=== PATIENT | female | born 2000 | race Asian ===

== ENCOUNTER 2021-03-08 01:35 | Inpatient (IN) ==
--- NOTE | 2021-03-08 02:49 | Emergency Department Note ---
History of Present Illness General Chief complaint: Cough Stated complaint: HEAVY COUGH,VERY MILD CHEST PAIN,FATIGUE Time Seen by Provider: 03/08/21 01:50 Source: patient Mode of arrival: ambulatory Limitations: no limitations History of Present Illness Provider complaint: cough, fatigue Onset (ago): day(s) 5 Treatments prior to arrival: none This is a 20-year-old female presents emergency department complaining of several days of fatigue and cough. Patient states last she began noticing fatigue and not feeling well. She states over the weekend she felt subjective fevers and chills but when she checked her temperature did she did not actually have a fever. She states then she began developing a cough, nonproductive, at times vigorous leading to chest pain. She denies nasal congestion, rhinorrhea, sore throat, headaches, myalgias. Patient denies any known sick contact. 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 Patient states her platelets typically run around 65. She states she tried an [id number] gummy for cough and cold symptoms without any relief. She states the cough does seem slightly improved since arriving here. No prior history of asthma or tobacco abuse. Patient denies any chance of . She denies any nausea, vomiting, diarrhea, edema, rash or sores. Patient denies any overt shortness of breath despite the cough. Pt seen during a time of high acuity and national emergency pandemic while wearing PPE. Home Medications Medication Instructions Recorded Confirmed Type acetaminophen 325 mg tablet 650 mg PO DIRECTED PRN 03/08/21 03/08/21 History (Tylenol) menthol 5.8 mg lozenges (Cough 0 mg PO DIRECTED PRN 03/08/21 03/08/21 History Drops) Allergies Allergy/AdvReac Type Severity Reaction Status Date / Time No Known Allergies Allergy Verified 03/08/21 02:17 Past Med/Surg History Medical History (Updated 03/08/21 @ 13:12 by Manuel Dale MD) Acute ITP Social History Smoking Status: Never smoker Hx Alcohol Use: Yes Alcohol type: beer, wine and hard liquor Hx Substance Use: No Preferred Language: Welsh Communication Ability: Effective [employer] Technician Required: No Beliefs That Will Affect Care: None Current Living Situation: Other Current Living Situation Comment: Roommates Other Information That Helps Us Care for You: No Feels Safe at Home: Yes Safety Concerns: Feels Safe At This Time Assistive Devices: None Review of Systems A total of 10 systems reviewed and were otherwise negative All systems reviewed & are unremarkable except as noted in HPI & below Physical Exam Vital Signs Vital Signs - 24 hr 03/08/21 01:39 03/08/21 02:30 03/08/21 04:16 Temperature 37.1 C Temperature Source Oral Pulse Rate 128 H Pulse Rate [Finger] 111 H 110 H Respiratory Rate 18 16 18 Respiratory Effort / Characteristics Non-Labored Spontaneous Non-Labored Spontaneous Respiratory Depth Normal Normal Normal Respiratory Pattern Regular Regular Blood Pressure 108/68 Blood Pressure [Left Arm] 103/68 111/69 Blood Pressure Mean 81 Blood Pressure Mean [Left Arm] 79 83 Blood Pressure Position [Left Arm] Sitting Sitting Pulse Oximetry 100 100 100 Oxygen Delivery Method Room Air Room Air Room Air Sepsis Recent Fever Within 48 Hours No Sepsis New/Unexplained Change in Mental Status N/A Sepsis Action Taken by Nursing No Action Required GENERAL: alert, well appearing, well nourished, no distress, non-toxic EYE EXAM: normal conjunctiva, PERRL and EOM's grossly intact OROPHARYNX: no exudate, no erythema, lips, buccal mucosa, and tongue normal and mucous membranes are moist NECK: supple, no nuchal rigidity, no adenopathy, non-tender LUNGS: Clear to auscultation. Normal chest wall mechanics, no w/r/r HEART: no murmurs, S1 normal and S2 normal ABDOMEN: abdomen soft, non-tender, normo-active bowel sounds, no masses, no rebound or guarding. BACK: Back is symmetrical on inspection and there is no deformity, no midline tenderness, no CVA tenderness. SKIN: no rashes and no bruising, no petechiae UPPER EXTREMITIES: upper extremities are grossly normal. FROM, nml pulses b/l. LOWER EXTREMITIES: No pitting edema. FROM, nml pulses b/l. NEURO EXAM: Normal sensorium, cranial nerves II-XII grossly intact, normal speech, no gross weakness of arms, no gross weakness of legs. Gross sensation intact. Course Course 0335: I updated pt on results and concerns and we discussed inpatient treatment and blood transfusion. I did answer a few questions bedside and patient asked then if she can make a few phone calls before deciding. Patient states she does have a history of thyroid dysfunction is not currently taking any medications. 0400: Hospitalist update as a precaution, will check back with patient to see if she was in agreement. 0425: Patient now in agreement with plan for blood transfusion, blood consent form signed at bedside. In agreement with plan for additional inpatient management also. [facility] hospitalist notified. Administered Medications Famotidine (Famotidine 20 Mg Tab) 20 mg PO BID ALINA Stop: 04/07/21 08:59 Last Admin: 03/08/21 20:01 Dose: 20 mg Documented by: [id number] Admin: 03/08/21 09:53 Dose: 20 mg Documented by: [id number] Guaifenesin (Guaifenesin 600 Mg Tabcr) 600 mg PO Q12H ALINA Stop: 04/07/21 08:59 Last Admin: 03/08/21 20:01 Dose: 600 mg Documented by: [id number] Admin: 03/08/21 09:53 Dose: 600 mg Documented by: [id number] Ceftriaxone Sodium 1,000 mg/ (Dextrose) 50 mls @ 100 mls/hr IV Q24H ALINA; Protocol Stop: 03/16/21 05:59 Last Infusion: 03/09/21 06:47 Dose: 0 mls/hr Documented by: [id number] Admin: 03/09/21 06:14 Dose: 100 mls/hr Documented by: [id number] Azithromycin 500 mg/ Dextrose 255 mls @ 127.5 mls/hr IV Q24H ALINA Stop: 03/16/21 05:59 Last Admin: 03/09/21 06:14 Dose: 127.5 mls/hr Documented by: [id number] Levothyroxine Sodium (Levothyroxine Sodium 75 Mcg Tablet) 75 mcg PO DAILYBB ALINA Stop: 04/08/21 06:29 Last Admin: 03/09/21 06:26 Dose: 75 mcg Documented by: [id number] Menthol (Cough Drop (Sugar Free) Rochelle 24 Rochelle/1 Box) 1 rochelle BUCCAL Q1H PRN PRN Reason: Sore Throat Stop: 04/07/21 08:21 Last Admin: 03/08/21 09:08 Dose: 1 rochelle Documented by: [id number] Prednisone (Prednisone 50 Mg Tab) 50 mg PO DAILY ALINA Stop: 04/07/21 09:44 Last Admin: 03/08/21 11:04 Dose: 50 mg Documented by: [id number] Discontinued Medications Dexamethasone Sodium Phosphate (DexamethasonePf 10 Mg/Ml Vial) 6 mg IV NOW STA Stop: 03/08/21 04:57 Last Admin: 03/08/21 05:12 Dose: 6 mg Documented by: [id number] Ceftriaxone Sodium (Rocephin) 1,000 mg in 50 mls @ 100 mls/hr IV NOW STA Stop: 03/08/21 04:23 Last Infusion: 03/08/21 04:46 Dose: 0 mls/hr Documented by: [id number] Admin: 03/08/21 04:16 Dose: 100 mls/hr Documented by: [id number] Azithromycin 500 mg/ Dextrose 255 mls @ 127.5 mls/hr IV NOW STA Stop: 03/08/21 07:14 Last Infusion: 03/08/21 07:50 Dose: 0 mls/hr Documented by: [id number] Admin: 03/08/21 05:51 Dose: 127.5 mls/hr Documented by: [id number] Ioversol (Optiray 320 125ml) 120 ml IV ONCE ONE Stop: 03/08/21 06:35 Last Admin: 03/08/21 06:35 Dose: 120 ml Documented by: [id number] Potassium Chloride (Potassium Chloride Crtab 20 Meq Tabcr) 40 meq PO NOW STA Stop: 03/08/21 05:38 Last Admin: 03/08/21 06:21 Dose: 40 meq Documented by: [id number] Vitamin D (Cholecalciferol 1,000 Units 25 Mcg Tab) [facility] [place]: 04/07/21 08:59 Last Admin: 03/08/21 09:58 Dose: Not Given Documented by: [id number] Zinc Sulfate (Zinc Sulfate 220 Mg Capsule) [facility] Stop: 04/07/21 08:59 Last Admin: 03/08/21 09:58 Dose: Not Given Documented by: [id number] Critical Care Time Critical Care Time: Yes Total Critical Care Time: 42 Critical care of 42 min performed to assess and manage high likelihood of life- threatening anemia, involving labs and imaging performed with assessment to evaluate fatigue and cough diagnosis with frequent reassessment. This time includes bedside time, treatment discussions with patient/family/consultants, documentation time and excludes procedure time. Medical Decision Making Differential Diagnosis Differential diagnoses includes but is not limited to pneumonia, bronchitis, COPD/Asthma exacerbation, pneumothorax, pulmonary embolism, congestive heart failure, acute coronary syndrome Medical Records Attestation: I reviewed the patient's medical records. Home Medications Current Medication List: was personally reviewed by me Laboratory Data Attestation: I reviewed the patient's lab results. Result diagrams: 03/08/21 04:07 03/08/21 02:31 Lab Results 03/08/21 03/08/21 03/08/21 Range/Units 02:31 02:31 02:31 WBC 5.61 (4.8-10.8) K/uL RBC 2.84 L (4.2-5.4) M/uL Hgb 3.6 L* (12.0-16.0) g/dL Hct 15.8 L* (37-47) % MCV 55.6 L (80-100) fL MCH 12.7 L (25-34) pg MCHC 22.8 L (32-36) g/dL Plt Count 24 L* (130-400) K/uL Immature Gran % (Auto) 1.2 % Neut % (Auto) 62.1 % Lymph % (Auto) 27.8 % [place] % (Auto) 8.2 % Eos % (Auto) 0.2 % Baso % (Auto) 0.5 % Reticulocyte % (Auto) (0.5-2.0) % Neut # (Auto) 3.48 (1.4-6.5) K/uL Lymph # (Auto) 1.56 (1.2-3.4) K/uL [place] # (Auto) 0.46 (0.11-0.59) K/uL Eos # (Auto) 0.01 (0-0.5) K/uL Baso # (Auto) 0.03 (0-0.2) K/uL Reticulocyte # (0.02-0.10) 10^6/uL Immature Gran # (Auto) 0.07 H (0.00-0.02) K/uL Absolute Nucleated RBC 0.22 H (0-0) K/uL Nucleated RBC % (auto) 3.8 % Platelet Estimate SIGNIFIC DECREASED (Normal) Giant Platelets 1+ Hypochromasia Present Microcytosis Present Tear Drop Cells 2+ Peripher Smr Path Cons Immature Retic Fraction (3.0-15.9) % Retic Hgb Content (28.2-36.6) pg D-Dimer 460 (0-500) ug/L FEU Sodium 133 L (136-145) mmol/L Potassium 3.2 L (3.5-5.1) mmol/L Chloride 105 (98-107) mmol/L Carbon Dioxide 22 (21-32) mmol/L Anion Gap 6.0 (3-11) BUN 9 (7-18) mg/dl Creatinine 0.63 (0.6-1.2) mg/dl Est Cr Clr Drug Dosing 115.6 ml/min Est GFR ( Amer) 147.6 ml/min Est GFR (Non-Af Amer) 127.3 ml/min BUN/Creatinine Ratio 14.2 (10-20) Glucose 92 (70-99) mg/dl Calcium 8.0 L (8.5-10.1) mg/dl Magnesium 2.1 (1.8-2.4) mg/dl Iron (35-150) mcg/dl TIBC (250-450) mcg/dl Ferritin (8-388) ng/ml Total Bilirubin 1.1 H (0.2-1) mg/dl AST 16 (15-37) U/L ALT 9 L (12-78) U/L Alkaline Phosphatase 53 (45-117) U/L Troponin I < 0.015 (0-0.045) ng/ml NT-Pro-B Natriuret Pep 360 (0-450) pg/ml Total Protein 7.2 (6.4-8.2) gm/dl Albumin 3.6 (3.4-5.0) gm/dl Globulin 3.6 (2.5-4.0) gm/dl Albumin/Globulin Ratio 1.0 (0.9-2) Procalcitonin (0-0.5) ng/ml TSH 63.000 H (0.300-4.500) uIu/ml Free T4 0.60 L (0.8-1.6) ng/dl HCG, Qual (Negative) COVID-19 Eval Order SARS-CoV-2 (PCR) (Negative) Blood Type Blood Type Recheck Antibody Screen Antibody Identification Antibody ID Comment Antigen Identification Direct Antiglob Test (Negative) ZACHERY (IgG-AHG) (Negative) ZACHERY, Polyspecific (Negative) ZACHERY C3b, C3d 5 Min (Negative) Crossmatch 03/08/21 03/08/21 03/08/21 Range/Units 02:31 02:31 02:34 WBC (4.8-10.8) K/uL RBC (4.2-5.4) M/uL Hgb (12.0-16.0) g/dL Hct (37-47) % MCV (80-100) fL MCH (25-34) pg MCHC (32-36) g/dL Plt Count (130-400) K/uL Immature Gran % (Auto) % Neut % (Auto) % Lymph % (Auto) % [place] % (Auto) % Eos % (Auto) % Baso % (Auto) % Reticulocyte % (Auto) (0.5-2.0) % Neut # (Auto) (1.4-6.5) K/uL Lymph # (Auto) (1.2-3.4) K/uL [place] # (Auto) (0.11-0.59) K/uL Eos # (Auto) (0-0.5) K/uL Baso # (Auto) (0-0.2) K/uL Reticulocyte # (0.02-0.10) 10^6/uL Immature Gran # (Auto) (0.00-0.02) K/uL Absolute Nucleated RBC (0-0) K/uL Nucleated RBC % (auto) % Platelet Estimate (Normal) Giant Platelets Hypochromasia Microcytosis Tear Drop Cells Peripher Smr Path Cons Immature Retic Fraction (3.0-15.9) % Retic Hgb Content (28.2-36.6) pg D-Dimer (0-500) ug/L FEU Sodium (136-145) mmol/L Potassium (3.5-5.1) mmol/L Chloride (98-107) mmol/L Carbon Dioxide (21-32) mmol/L Anion Gap (3-11) BUN (7-18) mg/dl Creatinine (0.6-1.2) mg/dl Est Cr Clr Drug Dosing ml/min Est GFR ( Amer) ml/min Est GFR (Non-Af Amer) ml/min BUN/Creatinine Ratio (10-20) Glucose (70-99) mg/dl Calcium (8.5-10.1) mg/dl Magnesium (1.8-2.4) mg/dl Iron (35-150) mcg/dl TIBC (250-450) mcg/dl Ferritin (8-388) ng/ml Total Bilirubin (0.2-1) mg/dl AST (15-37) U/L ALT (12-78) U/L Alkaline Phosphatase (45-117) U/L Troponin I (0-0.045) ng/ml NT-Pro-B Natriuret Pep (0-450) pg/ml Total Protein (6.4-8.2) gm/dl Albumin (3.4-5.0) gm/dl Globulin (2.5-4.0) gm/dl Albumin/Globulin Ratio (0.9-2) Procalcitonin < 0.05 (0-0.5) ng/ml TSH (0.300-4.500) uIu/ml Free T4 (0.8-1.6) ng/dl HCG, Qual Negative (Negative) COVID-19 Eval Order Covid19 at [facility] SARS-CoV-2 (PCR) (Negative) Blood Type Blood Type Recheck Antibody Screen Antibody Identification Antibody ID Comment Antigen Identification Direct Antiglob Test (Negative) ZACHERY (IgG-AHG) (Negative) ZACHERY, Polyspecific (Negative) ZACHERY C3b, C3d 5 Min (Negative) Crossmatch 03/08/21 03/08/21 03/08/21 Range/Units 02:34 04:07 04:07 WBC 5.35 (4.8-10.8) K/uL RBC 2.61 L (4.2-5.4) M/uL Hgb 3.3 L* (12.0-16.0) g/dL Hct 14.6 L* (37-47) % MCV 55.9 L (80-100) fL MCH 12.6 L (25-34) pg MCHC 22.6 L (32-36) g/dL Plt Count 31 L (130-400) K/uL Immature Gran % (Auto) % Neut % (Auto) % Lymph % (Auto) % [place] % (Auto) % Eos % (Auto) % Baso % (Auto) % Reticulocyte % (Auto) 2.4 H (0.5-2.0) % Neut # (Auto) (1.4-6.5) K/uL Lymph # (Auto) (1.2-3.4) K/uL [place] # (Auto) (0.11-0.59) K/uL Eos # (Auto) (0-0.5) K/uL Baso # (Auto) (0-0.2) K/uL Reticulocyte # 0.06 (0.02-0.10) 10^6/uL Immature Gran # (Auto) (0.00-0.02) K/uL Absolute Nucleated RBC 0.17 H (0-0) K/uL Nucleated RBC % (auto) 3.2 % Platelet Estimate SIGNIFIC DECREASED (Normal) Giant Platelets Hypochromasia Microcytosis Tear Drop Cells Peripher Smr Path Cons Immature Retic Fraction 18.4 H (3.0-15.9) % Retic Hgb Content 13.9 L (28.2-36.6) pg D-Dimer (0-500) ug/L FEU Sodium (136-145) mmol/L Potassium (3.5-5.1) mmol/L Chloride (98-107) mmol/L Carbon Dioxide (21-32) mmol/L Anion Gap (3-11) BUN (7-18) mg/dl Creatinine (0.6-1.2) mg/dl Est Cr Clr Drug Dosing ml/min Est GFR ( Amer) ml/min Est GFR (Non-Af Amer) ml/min BUN/Creatinine Ratio (10-20) Glucose (70-99) mg/dl Calcium (8.5-10.1) mg/dl Magnesium (1.8-2.4) mg/dl Iron (35-150) mcg/dl TIBC (250-450) mcg/dl Ferritin (8-388) ng/ml Total Bilirubin (0.2-1) mg/dl AST (15-37) U/L ALT (12-78) U/L Alkaline Phosphatase (45-117) U/L Troponin I (0-0.045) ng/ml NT-Pro-B Natriuret Pep (0-450) pg/ml Total Protein (6.4-8.2) gm/dl Albumin (3.4-5.0) gm/dl Globulin (2.5-4.0) gm/dl Albumin/Globulin Ratio (0.9-2) Procalcitonin (0-0.5) ng/ml TSH (0.300-4.500) uIu/ml Free T4 (0.8-1.6) ng/dl HCG, Qual (Negative) COVID-19 Eval Order SARS-CoV-2 (PCR) POSITIVE A* (Negative) Blood Type O Positive Blood Type Recheck Antibody Screen POSITIVE A Antibody Identification Anti-E Antibody ID Comment Antigen Identification E Antigen - NEGATIVE Direct Antiglob Test Positive A (Negative) ZACHERY (IgG-AHG) Neg (Negative) ZACHERY, Polyspecific Weak Pos A (Negative) ZACHERY C3b, C3d 5 Min Weak Pos A (Negative) Crossmatch See Detail 03/08/21 03/08/21 Range/Units 04:09 04:25 WBC (4.8-10.8) K/uL RBC (4.2-5.4) M/uL Hgb (12.0-16.0) g/dL Hct (37-47) % MCV (80-100) fL MCH (25-34) pg MCHC (32-36) g/dL Plt Count (130-400) K/uL Immature Gran % (Auto) % Neut % (Auto) % Lymph % (Auto) % [place] % (Auto) % Eos % (Auto) % Baso % (Auto) % Reticulocyte % (Auto) (0.5-2.0) % Neut # (Auto) (1.4-6.5) K/uL Lymph # (Auto) (1.2-3.4) K/uL [place] # (Auto) (0.11-0.59) K/uL Eos # (Auto) (0-0.5) K/uL Baso # (Auto) (0-0.2) K/uL Reticulocyte # (0.02-0.10) 10^6/uL Immature Gran # (Auto) (0.00-0.02) K/uL Absolute Nucleated RBC (0-0) K/uL Nucleated RBC % (auto) % Platelet Estimate (Normal) Giant Platelets Hypochromasia Microcytosis Tear Drop Cells Peripher Smr Path Cons Immature Retic Fraction (3.0-15.9) % Retic Hgb Content (28.2-36.6) pg D-Dimer (0-500) ug/L FEU Sodium (136-145) mmol/L Potassium (3.5-5.1) mmol/L Chloride (98-107) mmol/L Carbon Dioxide (21-32) mmol/L Anion Gap (3-11) BUN (7-18) mg/dl Creatinine (0.6-1.2) mg/dl Est Cr Clr Drug Dosing ml/min Est GFR ( Amer) ml/min Est GFR (Non-Af Amer) ml/min BUN/Creatinine Ratio (10-20) Glucose (70-99) mg/dl Calcium (8.5-10.1) mg/dl Magnesium (1.8-2.4) mg/dl Iron 11 L (35-150) mcg/dl TIBC 365 (250-450) mcg/dl Ferritin 4.9 L (8-388) ng/ml Total Bilirubin (0.2-1) mg/dl AST (15-37) U/L ALT (12-78) U/L Alkaline Phosphatase (45-117) U/L Troponin I (0-0.045) ng/ml NT-Pro-B Natriuret Pep (0-450) pg/ml Total Protein (6.4-8.2) gm/dl Albumin (3.4-5.0) gm/dl Globulin (2.5-4.0) gm/dl Albumin/Globulin Ratio (0.9-2) Procalcitonin (0-0.5) ng/ml TSH (0.300-4.500) uIu/ml Free T4 (0.8-1.6) ng/dl HCG, Qual (Negative) COVID-19 Eval Order SARS-CoV-2 (PCR) (Negative) Blood Type Blood Type Recheck O Positive Antibody Screen Antibody Identification Antibody ID Comment Antigen Identification Direct Antiglob Test (Negative) ZACHERY (IgG-AHG) (Negative) ZACHERY, Polyspecific (Negative) ZACHERY C3b, C3d 5 Min (Negative) Crossmatch ECG Data Attestation: I personally reviewed and interpreted this ECG as follows: Indication: + weakness Rate (beats per minute): 112 Rhythm: + sinus tachycardia ECG Intervals/blocks: + Normal QRS and + Normal QT ECG [place]: + Normal ECG ST segments: + Normal ST segments MDM Narrative This is a 20-year-old female presents emergency department complaining of cough and fatigue. Patient found to have significant anemia and appearance of lobar pneumonia on chest x-ray. Patient initially started on IV Rocephin for the chest x-ray when CBC resulted. Additional bedside discussion revealed patient with a history of menorrhagia and prior anemia as well as a history of ITP. Patient noted to be thrombocytopenic in addition. Covid added as patient has not vaccinated, and was found to be positive also. Patient was given IV fluids. After significant discussion at bedside with the patient regarding concerns for her condition and lab abnormalities and need for additional inpatient treatment, she requested time to make several phone calls to family to discuss. Ultimately patient was in agreement with plan for inpatient admission and signed blood consent at bedside. 4 units of packed red cells were ordered in order to begin transfusion. Despite patient's significant anemia, patient remained hemodynamically stable. No hypoxia noted despite Covid diagnosis. Addition of steroids deferred to hospitalist who immediately saw the patient at bedside while I ordered blood transfusion. No additional antibiotics given due to confusing picture of a lobar pneumonia in addition to being Covid positive. Hospitalist to add CT chest for further evaluation. An order was placed for continuous cardiac monitoring. The monitor shows a rate of _70_ with _normal sinus_ rhythm. Impression & Plan Pneumonia, Anemia, Thrombocytopenia, COVID-19, Fatigue, Menorrhagia Discharge Plan Visit Data Chief Complaint: Cough Stated Complaint: HEAVY COUGH,VERY MILD CHEST PAIN,FATIGUE ED Provider: Denise Smith Discharge Problem: Pneumonia, Anemia, Thrombocytopenia, COVID-19, Fatigue, Menorrhagia Patient Disposition: Admitted As Inpatient Discharge Instructions Interventions: ED Discharge Assessment Last Done: 03/08/21 06:12 Discharge Problem: Pneumonia Qualifiers: Pneumonia type: due to unspecified organism Laterality: right Lung location: middle lobe of lung Qualified Code(s): J18.9 - Pneumonia, unspecified organism Anemia Qualifiers: Anemia type: unspecified type Qualified Code(s): D64.9 - Anemia, unspecified Fatigue Qualifiers: Fatigue type: unspecified Qualified Code(s): R53.83 - Other fatigue Menorrhagia Qualifiers: Menorrhagia type: with regular cycle Qualified Code(s): N92.0 - Excessive and frequent menstruation with regular cycle
[2021-03-08 03:09] LABS: Alanine Aminotransferase 9 U/L (12-78); Albumin Level 3.6 gm/dl (3.4-5.0); Aspartate Aminotransferase 16 U/L (15-37); BUN Creatinine Ratio 14.2 (10-20); Blood Urea Nitrogen 9 mg/dl (7-18); Carbon Dioxide 22 mmol/L (21-32); Chloride 105 mmol/L (98-107); Creatinine Clr Calc Pharmacy 115.6 ml/min; Est GFR (African American) 147.6 ml/min; Est GFR (Non-African American) 127.3 ml/min; Glucose 92 mg/dl (70-99); Magnesium 2.1 mg/dl (1.8-2.4); Potassium 3.2 mmol/L (3.5-5.1); Sodium 133 mmol/L (136-145)
[2021-03-08 03:15] LABS: D Dimer 460 ug/L FEU (0-500)
[2021-03-08 03:20] LABS: Alkaline Phosphatase 53 U/L (45-117); Bilirubin,Total 1.1 mg/dl (0.2-1); Globulin 3.6 gm/dl (2.5-4.0); NT Pro B Type Natriuretic Pept 360 pg/ml (0-450); Total Protein 7.2 gm/dl (6.4-8.2); Troponin I < 0.015 ng/ml (0-0.045)
[2021-03-08 03:22] LABS: Hematocrit (blood only) 15.8 % (37-47); Hemoglobin 3.6 g/dL (12.0-16.0); Mean Corpuscular Hemoglobin 12.7 pg (25-34); Mean Corpuscular Hgb Conc 22.8 g/dL (32-36); Mean Corpuscular Volume 55.6 fL (80-100); Nucleated RBC # (auto) 0.22 K/uL (0-0); Nucleated RBC % (auto) 3.8 %; Platelet Count 24 K/uL (130-400); Red Blood Count 2.84 M/uL (4.2-5.4); White Blood Count 5.61 K/uL (4.8-10.8)
[2021-03-08 03:24] LABS: Basophils # (auto) 0.03 K/uL (0-0.2); Basophils % (auto) 0.5 %; Eosinophils # (auto) 0.01 K/uL (0-0.5); Eosinophils % (auto) 0.2 %; Giant Platelets 1+; Hypochromasia Present; Immature Granulocytes # (auto) 0.07 K/uL (0.00-0.02); Immature Granulocytes % (auto) 1.2 %; Lymphocytes # (auto) 1.56 K/uL (1.2-3.4); Lymphocytes % (auto) 27.8 %; Microcytosis Present; Monocytes # (auto) 0.46 K/uL (0.11-0.59); Monocytes % (auto) 8.2 %; Neutrophils # (auto) 3.48 K/uL (1.4-6.5); Neutrophils % (auto) 62.1 %; Platelet Estimate SIGNIFIC DECREASED (Normal)
[2021-03-08 03:30] LABS: Pregnancy Test, Serum Negative (Negative)
[2021-03-08] MEDS ORDERED: cefTRIAXone SODIUM 1,000 MG/50 ML BAG IV STA (03:54)
[2021-03-08] MEDS ORDERED: SODIUM CHLORIDE 0.9% 250 ML IV PRN (04:26)
[2021-03-08 04:35] LABS: Hematocrit (blood only) 14.6 % (37-47); Hemoglobin 3.3 g/dL (12.0-16.0); Mean Corpuscular Hemoglobin 12.6 pg (25-34); Mean Corpuscular Hgb Conc 22.6 g/dL (32-36); Mean Corpuscular Volume 55.9 fL (80-100); Nucleated RBC # (auto) 0.17 K/uL (0-0); Nucleated RBC % (auto) 3.2 %; Platelet Count 31 K/uL (130-400); Red Blood Count 2.61 M/uL (4.2-5.4); White Blood Count 5.35 K/uL (4.8-10.8)
[2021-03-08 04:37] LABS: Platelet Estimate SIGNIFIC DECREASED (Normal)
[2021-03-08] MEDS ORDERED: dexAMETHasone 6 MG in SYRINGE 0 ML IV STA (04:52)
[2021-03-08] MEDS ORDERED: dexAMETHasone**PF** 10 MG/ML VIAL IV STA (04:56)
--- NOTE | 2021-03-08 05:12 | History & Physical Report ---
Date of Service March 08, 2021 Assessment & Plan (1) COVID-19: Plan: Patient is a 20 year old female with PMHx ITP who presents with 6 day history of fatigue and SOB in addition to 1 day history of dry cough found to have COVID-19 infection and Hgb 3.6 while in the ED. COVID-19 Infection with suspected bacterial PNA of the RML -Patient did not receive COVID-19 vaccination due to history of ITP -CXR with consolidation noted on the RML, will order for CTA chest -Symptoms starting 6 days ago, though 98-100% on room air, will hold on Remdesivir -Decadron 6mg now, Decadron 6mg daily after -Empirically covering for suspected superimposed bacterial PNA of the RML with CTX and Azithromycin IV -Less likely as procalcitonin negative, CTA chest as above to further clarify -Guaifenesin 600mg BID -Vitamin D 1000u QD -Zinc Sulfate 220mg QD Severe Anemia with history of ITP -Hgb 3.3 on admission, platelets 24 -Type and Cross, start transfusion for 4u PRBC -Iron studies ordered for prior to transfusion -B12 level ordered for prior to transfusion -Decadron 6mg IV as above -Peripheral smear ordered -With normal bilirubin levels lower suspicion for hemolytic anemia -H&H checks q4h -will check for fecal occult blood, though difficult as patient is on her menses -Hematology Oncology consulted Hypothyroidism -Patient notes history of hyperthyroidism, though labs showing hypothyroidism -TSH 61, Free T4 0.6 Hypokalemia -Potassium 3.2 on admission -Will give PO KCl 40meq now Dispo: PCU for close monitoring of severe anemia and COVID-19 infection with suspected superimposed bacterial pneumonia FEN: Regular diet, Blood infusion 4u PRBC DVT: Hold chemoprophylaxis at this time Code: Full (2) Anemia: (3) Thrombocytopenia: History of Present Illness Chief Complaint: fatigue, shortness of breath Primary Care Provider: [facility] Patient is a 20 year old female with PMHx ITP who presents with 6 day history of fatigue and SOB in addition to 1 day history of dry cough found to have COVID-19 infection and Hgb 3.6 while in the ED. Patient notes that she was at the club fair at [facility] on 03/02/21 when her symptoms of fatigue first began. She feels that she was very dehydrated at the time and chalked the fatigue up to that. She feels she may have had a fever that night, but did not check. She notes that her fatigue and SOB on exertion then worsened over the past few days until yesterday when she developed a severe dry cough. She denies any mucus or blood with the cough. She presented to the ED due to worsening of the cough. Patient notes that she has a history of ITP which was diagnosed her sophomore year of high school when she was living in [facility]. She states at the time she was transfused with blood, platelets, and started on steroids. She also notes a history of hyperthyroidism, but no longer takes any medications for it. She currently does not take any medications. She notes her platelets hover around the 60's and that her hgb 8 at baseline. She notes she is currently on her 3-4 day of her period which she notes is heavy and is heavy at baseline. She currently notes she only becomes short of breath on exertion and has no issues with breathing at rest. She denies any chest pain, chest pressure, SOB at rest, fever, chills, abdominal pain, abdominal cramping, diarrhea, nausea, vomiting, bloody stools, headache, visual changes. Med Hx: ITP, reported hyperthyroidism Soc Hx: Denies tobacco or illicit drug use. Notes drinking 3-4 alcoholic beverag es on the weekends Fam Hx: Denies any family history of ITP, Hemophilias, von Willebrand Disease Allergies Allergy/AdvReac Type Severity Reaction Status Date / Time No Known Allergies Allergy Verified 03/08/21 02:17 Home Medications Medication Instructions Recorded Confirmed Type acetaminophen 325 mg tablet 650 mg PO DIRECTED PRN 03/08/21 03/08/21 History (Tylenol) menthol 5.8 mg lozenges (Cough 0 mg PO DIRECTED PRN 03/08/21 03/08/21 History Drops) Past Med/Surg History Medical History (Updated 03/08/21 @ 13:12 by Manuel Dale MD) Acute ITP Social History Smoking Status: Never smoker Hx Alcohol Use: Yes Alcohol type: beer, wine and hard liquor Hx Substance Use: No Preferred Language: Japanese Communication Ability: Effective 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 [employer] Personality Required: No Beliefs That Will Affect Care: None Current Living Situation: Other Current Living Situation Comment: Roommates Other Information That Helps Us Care for You: No Feels Safe at Home: Yes Safety Concerns: Feels Safe At This Time Assistive Devices: None Review of Systems Review of Systems: ROS above Physical Exam Constitutional: well developed, well nourished and cooperative; no acute distress Eyes: normal visual velez by confrontation, + conjunctival abnormality (pale), PERRL and EOM intact bilaterally ENMT: external ear and nose normal, oropharynx normal Neck: normal visual inspection and trachea midline Respiratory: normal respiratory effort; no cough Auscultation: lungs clear to auscultation bilaterally; no diminished lung sounds, no crackles, no rales and no wheezes surprisingly CTA over the R lung field Cardiovascular: Rate/Rhythm: regular rhythm and + tachycardic Heart Sounds: normal S1 and normal S2; no murmur and no cardiac rub Vessels: no JVD Extremities: no calf tenderness and no edema Gastrointestinal (Abdomen): Inspection/Auscultation: abdomen normal to inspection and normal bowel sounds; abdomen not distended Percussion/Palpation: abdomen soft; abdomen nontender, no guarding and abdomen not rigid Musculoskeletal: no cyanosis or clubbing, extremities motor strength 5/5 Head/Neck/Chest: normocephalic and head atraumatic Skin: no rashes, warm and dry Neurologic: PERRL, EOMI, accommodation nl, no face palsy, no dysarthria Psychiatric: A+Ox3, euthymic affect Genitourinary: deferred Results & Data Results & Data ([facility]) Vital Signs (Past 12 Hours) Vital Signs Temp Pulse Pulse Resp BP BP Pulse Ox 03/08/21 04:16 110 H 18 111/69 100 03/08/21 02:30 111 H 16 103/68 100 03/08/21 01:39 37.1 C 128 H 18 108/68 100 Code Status & VTE Plan VTE Prophylaxis Plan VTE Prophylaxis will be ordered: No Supervising Physician Co-Signing Physician Notes Attending addendum: I have physically seen this patient, have supervised the medical residents activities, and agree with the H&P unless as otherwise noted. Assessment and Plan: COVID-19 infection/secondary bacterial pneumonia right middle lobe/right upper lobe/without hypoxia- Dexamethasone 6 mg IV daily Ceftriaxone 1 g IV daily Azithromycin 5 mg IV daily Proventil HFA Guaifenesin extended release 5 mg p.o. twice daily Vitamin D 1000 international units p.o. daily Zinc sulfate 220 mg p.o. daily No anticoagulation due to history of ITP Severe anemia/thrombocytopenia/history of chronic anemia and ITP- Patient reports her hemoglobin is usually around 8 and her platelets are usually around 65 Hemoglobin 3.3 upon admission, at least in part secondary to menstruation Transfusion PRBCs as noted Serial H&H's Order iron studies, B12 and folate Peripheral smear SPEP and hemoglobin electrophoresis Hemoccult stools Consult hematology Hypothyroidism- Patient reports that she has a history of hyperthyroidism. We will check antibody tests She is significantly enough hypothyroid that it may be contributing to heavy menses which is then contributing to severe anemia. Consideration for treatment with thyroid supplementation once additional thyroid imaging is completed Remaining orders and notations as noted Resident Activity Tracking Resident Involvement: Resident Care Provided Care Provided: Adult Hospital Medicine (1) Anemia Anemia type: unspecified type Qualified Code(s): D64.9 - Anemia, unspecified
[2021-03-08] MEDS ORDERED: AZITHROMYCIN 500 MG in DEXTROSE 5% 250 ML IV STA (05:15)
[2021-03-08] MEDS ORDERED: POTASSIUM CHLORIDE CRTAB 20 MEQ TABCR PO STA (05:37)
[2021-03-08] MEDS ORDERED: OPTIRAY 320 125ml IV ONE (06:34)
--- NOTE | 2021-03-08 06:43 | XRay Report ---
XR chest 1V portable CLINICAL HISTORY: Cough. COMPARISON STUDY: No previous studies for comparison. FINDINGS: Lung volumes are normal. Note is made of a focus of dense consolidation within the right mi dlung.. There is no pneumothorax or pleural effusion. Cardiac size is normal. Mediastinal contours ar e normal. There is no evidence for pulmonary edema. IMPRESSION: Focus of consolidation within the right midlung suggestive of pneumonia. Posttreatment r adiographs to ensure resolution are recommended. ACT 112: Negative or not required by law. Electronically signed by: Brock Mukherjee M.D. 03/08/2021 6:41 AM
[2021-03-08] MEDS ORDERED: ONDANSETRON INJ 2 MG/ML 2 ML VIAL IV PRN (06:47)
--- NOTE | 2021-03-08 06:59 | CT Scan Report ---
CT ANGIOGRAPHY OF THE CHEST, PULMONARY EMBOLUS PROTOCOL CLINICAL HISTORY: ?secondary bacterial pna with covid R lobe COMPARISON STUDY: Chest radiograph performed earlier today. TECHNIQUE: Following IV administration of 120 mL of Optiray, helical axial images of the chest were o btained utilizing the pulmonary embolus protocol. Maximal intensity projections and sagittal and cor onal reformats were viewed on an independent 3D workstation. IV contrast was administered without co mplication. Automated exposure control was utilized for the study. A dose lowering technique was ut ilized adhering to the principles of ALARA. CT DOSE: 217.25 mGy.cm FINDINGS: No pulmonary emboli are identified. There is no thoracic aortic dissection. Size of the he art is at upper limits of normal. There is dense consolidation within the right middle lobe. Central airways are patent. No cavitation. No pleural effusion. There are mild bilateral airspace opacities. There is no pneumothorax or pleural effusion. Borderline splenomegaly is noted. IMPRESSION: 1. No pulmonary emboli identified. 2. Dense right middle lobe consolidation. The appearance is more suggestive of bacterial pneumonia. A viral pneumonia is within the differential. 3. Additional mild bilateral lower lobe airspace opacities which may be viral or bacterial in etiolog y. ACT 112: Negative or not required by law. Electronically signed by: Brock Mukherjee M.D. 03/08/2021 6:58 AM
[2021-03-08 07:00] LABS: Tear Drop Cells 2+
[2021-03-08] MEDS ORDERED: COUGH DROP (SUGAR FREE) LOZ 24 LOZ/1 BOX BUCCAL PRN (08:22)
[2021-03-08 08:26] LABS: Immature Retic Fraction 18.4 % (3.0-15.9); Reticulated Hemoglobin 13.9 pg (28.2-36.6); Reticulocyte % 2.4 % (0.5-2.0); Reticulocytes # 0.06 10^6/uL (0.02-0.10)
[2021-03-08] MEDS ORDERED: ZINC SULFATE 220 MG CAPSULE PO SCH (09:00)
[2021-03-08] MEDS ORDERED: CHOLECALCIFEROL 1,000 UNITS 25 MCG TAB PO SCH (09:00)
[2021-03-08] MEDS ORDERED: ACETAMINOPHEN 325 MG TAB PO PRN (09:31)
[2021-03-08] MEDS: guaiFENesin 600 MG TABCR PO SCH ×2 (09:53→20:01)
[2021-03-08] MEDS: FAMOTIDINE 20 MG TAB PO SCH ×2 (09:53→20:01)
[2021-03-08 10:47] LABS: Ferritin 4.9 ng/ml (8-388)
[2021-03-08] MEDS: predniSONE 50 MG TAB PO SCH (11:04)
--- NOTE | 2021-03-08 13:08 | Hospitalist Progress Note ---
Date of Service March 08, 2021 Assessment & Plan (1) Acute ITP: Plan: Initial presentation in 2013 while in [place]. She reports she received prednisone, PRBCs, and platelets at that time. Since then, no recurrence, no need for hospitalization, no transfusions. Occasionally saw provider at [facility] in [place] (where she lives with her aunt during school breaks), but reports she hasn't had labs done in at least a year. - Discussed with hematology (Dr. Madrigal) who will see her tonight or tomorrow morning - Start prednisone 50 mg PO daily (1 mg/kg dosing). Monitor response. Can consider IVIg if no response in 1-2 days. (2) Anemia: Plan: Likely from iron deficiency from chronic, irregular menorrhagia. Per patient, has had upwards of 20 days of menstrual bleeding per month since November 2020. D espite a hgb of 3.3, her vitals are stable, indicating this is not an acute bleed. - Ordered 4 units PRBCs - Monitor hgb, though as above, unlikely to be from acute bleed - Will likely give IV iron tomorrow. Patient reports she needed this back in [place] when she was first diagnosed. (3) Pneumonia: Plan: CTA chest on 03/08 showed a dense, RML consolidation that favored a bacterial pneumonia. - Continue ceftriaxone/azithromycin (4) COVID-19: Plan: Tested positive on admission. Symptoms confounded by her likely bacterial pneumonia. Did *not* receive the Covid vaccine as her doctor in [facility] was worried about thrombocytopenia with the vaccine. - On steroids for ITP - Monitor symptoms (5) Menorrhagia: Plan: As noted above, has been having heavy, irregular menorrhagia for about 4 months. - Discussed control methods; will provide literature (6) DVT prophylaxis: Plan: SCDs - Low DVT risk per admission calculator & refrain from chemoprophylaxis giving anemia and thrombocytopenia. Admission and Anticipated Discharge Date Admission Date: March 08, 2021 Subjective Cough and sore throat today. Reports no fevers/chills, chest pain, shortness of breath, abdominal pain, nausea, or vomiting. Physical Exam Constitutional: WD/WN, vitals as above Eyes: EOM intact bilaterally; no conjunctival abnormality ENMT: external ear and nose normal, oropharynx normal Neck: trachea midline, no thyromegaly normal visual inspection Respiratory: normal respiratory effort, lungs clear to auscultation + cough; no respiratory distress and not tachypneic Cardiovascular: RRR, no murmur, no edema Gastrointestinal (Abdomen): Inspection/Auscultation: abdomen normal to inspection; abdomen not distended Musculoskeletal: no cyanosis or clubbing, extremities motor strength 5/5 Skin: no rashes, warm and dry Neurologic: moves all extremities and awake Psychiatric: Orientation: alert, oriented to person and cooperative Results & Data Results & Data ([facility]) Vital Signs (Past 12 Hours) Vital Signs Temp Pulse Pulse Resp BP BP Pulse Ox 03/08/21 12:54 36.5 C 94 H 18 111/81 03/08/21 12:38 37.3 C 95 H 20 109/87 99 03/08/21 12:11 37.2 C 94 H 20 110/74 99 03/08/21 12:05 97 H 18 115/76 99 03/08/21 11:19 37.6 C H 98 H 99 H 104/71 03/08/21 10:19 37.0 C 113 H 20 107/85 98 03/08/21 09:49 36.8 C 113 H 20 114/74 98 03/08/21 09:48 36.8 C 113 H 20 114/74 98 03/08/21 09:34 37.0 C 113 H 18 111/71 03/08/21 09:18 37.7 C H 114 H 16 111/71 99 03/08/21 07:59 37.1 C 104 H 20 110/75 100 03/08/21 06:52 37.9 C H 109 H 23 113/81 99 03/08/21 05:18 106 H 22 105/70 99 03/08/21 04:16 110 H 18 111/69 100 03/08/21 02:30 111 H 16 103/68 100 03/08/21 01:39 37.1 C 128 H 18 108/68 100 PG Care Time/CCT Total # of Minutes Spent Total Time Spent with Patient: Total time spent is greater than 50% in coordination of care (as documented) at patient's floor/unit and/or counseling patient: Coding Level of Care Code 89953 Subseq Hosp Care Lvl 3 Diagnoses Acute ITP D69.3 Anemia D64.9 Anemia type: unspecified type Pneumonia J18.9 Laterality: right Lung location: middle lobe of lung Pneumonia type: due to unspecified organism COVID-19 U07.1 Menorrhagia N92.0 Menorrhagia type: with regular cycle DVT prophylaxis Z29.9 (1) Anemia Anemia type: unspecified type Qualified Code(s): D64.9 - Anemia, unspecified (2) Pneumonia Laterality: right Lung location: middle lobe of lung Pneumonia type: due to unspecified organism Qualified Code(s): J18.9 - Pneumonia, unspecified organism (3) Menorrhagia Menorrhagia type: with regular cycle Qualified Code(s): N92.0 - Excessive and frequent menstruation with regular cycle
--- NOTE | 2021-03-09 00:23 | Billing Data ---
Date of Service March 09, 2021 Coding Level of Care Code 64173 Initial Inpt Care Lvl 3
--- NOTE | 2021-03-09 04:58 | Consultation Report ---
HEMATOLOGY CONSULTATION. DATE OF CONSULT: 03/08/2021 REASON FOR CONSULTATION: Severe anemia and thrombocytopenia. HISTORY OF PRESENT ILLNESS: The patient is a very pleasant 20-year-old Micronesian female who attends [employer], admitted to [facility] on 03/08/2021 with severe anemia and thrombocytopenia. She presented to our Emergency Room with a 6-day history of fatigue and shortness of breath and 1-day history of dry cough and ironically found to be COVID-19 positive. The patient states that about a week ago while attending a club fair on the [place] [facility], began to experience fatigue. She describes her symptoms as feeling "dehydrated" and experienced a low-grade fever that night, but did not check her actual temperature. Over the past couple of days leading to admission, she developed a severe dry cough and shortness of breath had worsened. This young lady relates history of ITP, was treated by physicians through the [facility] with prednisone in the past. She is unclear on when the initial episode of ITP was originally diagnosed. However, has had no further issues and had remained in remission until her presentation to [facility]. I was contacted by the hospitalist on the day of admission. Unfortunately, I was out ill and provided instruction for Dr. Dale to begin prednisone 1 mg/kg. Because her anemia was severe, underwent a type and screen, which revealed both anti-C and anti-E antibodies aquired by previous blood transfusion or . I unfortunately, did not question the patient about a prior transfusion, but do not believe she has history of prior , but again, this is unknown as well. That said, iron studies clearly indicate she's severely iron deficient. Cecilia is in the midst of receiving blood. Other clinical issues on admission include lobar pneumonia, COVID-19 positivity and hypothyroidism. She is feeling much better at bedside and requested to provide assistance with her ongoing hematologic issues. PAST MEDICAL HISTORY: Prior hyperthyroidism, ITP. PAST SURGICAL HISTORY: Negative. CURRENT MEDICATIONS: Include Tylenol as needed. ALLERGIES: No known drug allergies. FAMILY HISTORY: Specifically, inquired about hemoglobinopathies. The patient has no running knowledge of either mother or father suffering from hereditary hemoglobinopathies. SOCIAL HISTORY: Patient enjoys social alcohol on weekends, otherwise a nonsmoker, nonillicit drug user. REVIEW OF SYSTEMS: CONSTITUTIONAL: As per HPI, most notably for fatigue, decreased exercise tolerance, shortness of breath. Positive for low-grade fever. SKIN: No history of dermatoses. No current rashes or lesions. HEENT: Negative for headaches, lightheadedness or dizziness. No acute visual or hearing deficits. No sinus symptoms, sore throat or dysphagia. LYMPH: No history of lymphoproliferative disease or peripheral lymphadenopathy. CARDIAC: No history of coronary artery disease, no angina or palpitations. PULMONARY: Negative for COPD. She is not short of breath, dyspneic or orthopneic. Positive for cough. No current hemoptysis. GASTROINTESTINAL: Negative for abdominal pain, nausea, vomiting, diarrhea or constipation. GENITOURINARY: No hematuria, dysuria, urinary incontinence. ENDOCRINE: Positive for history of hyperthyroidism, elevated TSH on admission. MUSCULOSKELETAL: No focal muscle weakness. No arthralgias or myalgias. NEUROLOGIC: Negative for seizure, stroke or migraine headache. HEMATOLOGIC: Positive for anemia and thrombocytopenia. PHYSICAL EXAMINATION: GENERAL: Very pleasant otherwise healthy 20-year-old Micronesian female in no acute distress. VITAL SIGNS: Temperature 36.3, pulse 78, respiratory rate 16, blood pressure 120/85. SKIN: Warm, dry, noncyanotic without petechia, rash or ecchymosis. HEENT: Head is atraumatic, normocephalic. Eyes, PERRLA. EOMI. Sclerae are nonicteric. No conjunctival injection. Nares are patent without rhinorrhea or discharge. Throat is clear. Tongue midline. Mucous membranes are moist. NECK: Supple without JVD or thyromegaly. LYMPH: No cervical, supraclavicular palpable nodes. HEART: Regular rate and rhythm. No clicks, rubs, murmurs or gallops. LUNGS: Clear to auscultation bilaterally. ABDOMEN: Soft, nontender, nondistended, without palpable hepatosplenomegaly. MUSCULOSKELETAL: Strength and pulses are equal in all 4 quadrants. No clubbing, cyanosis or edema. NEUROLOGICALLY: She is awake, alert and oriented x3. Cranial nerves are intact. LABORATORY DATA: WBC count 5350, hemoglobin 3.3, hematocrit 14.6%, platelet count 31,000. Reticulocyte percentage 2.4, nucleated RBCs noted. Sodium 133, potassium 3.2, chloride 105, carbon dioxide 22, creatinine 0.63, BUN 9, ferritin 4.9. Serum iron 11, TIBC 365, total bilirubin 1.1. TSH is 63, free T4 0.6. IMPRESSION: 1. Immune thrombocytopenia. 2. Blood loss versus hemolytic anemia. 3. Lobar pneumonia. 4. COVID-19 positivity. 5. Menorrhagia. PLAN: It was my pleasure to meet the patient at bedside this evening. I was alerted to her hematologic issues by Dr. Manuel Dale, managing hospitalist. The patient has history of ITP, previously responsive to high-dose prednisone. Thus, advised Dr. Dale the patient could potentially have intermixed iron deficiency with Stein syndrome. Her type and screen revealed anti-C and anti-E IgG antibodies, which are most likely acquired antibodies from prior transfusion or prior . Unclear whether this patient has cold agglutinins, as complement was borderline. That said, I would empirically place her on folic acid 1 mg p.o. daily. Iron studies indicate she is severely iron deficient and therefore should receive iron sucrose post-blood transfusion. We will inform the patient the antibody screen, as for future reference, if she requires blood products, the blood banker at the particular institution she presents wouldl need this information moving forward. I would happy to follow with the patient once she is discharged. I would advise a CBC at least once, perhaps twice weekly until she follows up moving forward. Generally speaking when prednisone is initiated,, generally continue starting dose for about 7-10 days and then wean 10 mg every 7 days thereafter depending on response. Weaning too rapidly will almost guarantee relapse in regard to platelets. We will continue to follow her periodically during hospitalization. Thank you very much for allowing me to participate in her care. Job ID: [id number] [facility]
--- NOTE | 2021-03-09 05:40 | Electrocardiogram Report ---
Test Reason : Blood Pressure : / mmHG Vent. Rate : 112 BPM Atrial Rate : 112 BPM P-R Int : 118 ms QRS Dur : 084 ms QT Int : 334 ms P-R-T Axes : 062 055 039 degrees QTc Int : 455 ms Sinus tachycardia Possible Left atrial enlargement Nonspecific T wave abnormality Abnormal ECG No previous ECGs available Confirmed by Lonny Dean ([id number]) on 03/09/2021 5:40:12 AM Referred By: REFERRED SELF Confirmed By:Lonny Dean
[2021-03-09] MEDS ORDERED: AZITHROMYCIN 500 MG in DEXTROSE 5% 250 ML IV SCH (06:00)
[2021-03-09] MEDS ORDERED: cefTRIAXone SODIUM 1,000 MG in DEXTROSE 5% 50 ML IV SCH (06:00)
[2021-03-09] MEDS ORDERED: LEVOTHYROXINE SODIUM 75 MCG TABLET PO SCH (06:30)
[2021-03-09 08:02] LABS: Hematocrit (blood only) 38.1 % (37-47); Hemoglobin 11.5 g/dL (12.0-16.0); Mean Corpuscular Hemoglobin 22.3 pg (25-34); Red Blood Count 5.15 M/uL (4.2-5.4)
[2021-03-09 08:21] LABS: Albumin Level 3.3 gm/dl (3.4-5.0); BUN Creatinine Ratio 14.3 (10-20); Calcium 8.4 mg/dl (8.5-10.1); Creatinine Clr Calc Pharmacy 113.8 ml/min; Est GFR (African American) 146.8 ml/min; Est GFR (Non-African American) 126.7 ml/min; Potassium 4.7 mmol/L (3.5-5.1)
[2021-03-09] MEDS ORDERED: IRON SUCROSE 400 MG in SODIUM CHLORIDE 0.9% 250 ML IV ONE (08:30)
[2021-03-09] MEDS: guaiFENesin 600 MG TABCR PO SCH (08:33)
[2021-03-09] MEDS: FAMOTIDINE 20 MG TAB PO SCH (08:33)
[2021-03-09] MEDS: predniSONE 50 MG TAB PO SCH (08:33)
[2021-03-09 08:38] LABS: Mean Corpuscular Hgb Conc 30.2 g/dL (32-36); Nucleated RBC # (auto) 0.34 K/uL (0-0); Nucleated RBC % (auto) 9.4 %; Platelet Count 17 K/uL (130-400)
[2021-03-09 08:39] LABS: Anisocytosis Present; Basophils # (auto) 0.01 K/uL (0-0.2); Basophils % (auto) 0.3 %; Immature Granulocytes # (auto) 0.04 K/uL (0.00-0.02); Immature Granulocytes % (auto) 1.1 %; Lymphocytes # (auto) 0.78 K/uL (1.2-3.4); Lymphocytes % (auto) 21.7 %; Monocytes # (auto) 0.13 K/uL (0.11-0.59); Monocytes % (auto) 3.6 %; Neutrophils # (auto) 2.64 K/uL (1.4-6.5); Neutrophils % (auto) 73.3 %; Platelet Estimate SIGNIFIC DECREASED (Normal); Polychromasia 1+; Tear Drop Cells 2+
[2021-03-09 08:43] LABS: Albumin Globulin Ratio 0.8 (0.9-2); Bilirubin,Total 0.8 mg/dl (0.2-1); Total Protein 7.3 gm/dl (6.4-8.2)
[2021-03-09] MEDS ORDERED: dexAMETHasone 6 MG in SYRINGE 0 ML IV SCH (09:00)
--- NOTE | 2021-03-09 16:19 | Discharge Summary ---
Date of Service March 09, 2021 Admission HPI Per Admitting Provider Patient is a 20 year old female with PMHx ITP who presents with 6 day history of fatigue and SOB in addition to 1 day history of dry cough found to have COVID-19 infection and Hgb 3.6 while in the ED. Patient notes that she was at the club fair at [facility] on 03/02/21 when her symptoms of fatigue first began. She feels that she was very dehydrated at the time and chalked the fatigue up to that. She feels she may have had a fever that night, but did not check. She notes that her fatigue and SOB on exertion then worsened over the past few days until yesterday when she developed a severe dry cough. She denies any mucus or blood with the cough. She presented to the ED due to worsening of the cough. Patient notes that she has a history of ITP which was diagnosed her sophomore year of high school when she was living in [place]. She states at the time she was transfused with blood, platelets, and started on steroids. She also notes a history of hyperthyroidism, but no longer takes any medications for it. She currently does not take any medications. She notes her platelets hover around the 60's and that her hgb 8 at baseline. She notes she is currently on her 3-4 day of her period which she notes is heavy and is heavy at baseline. She currently notes she only becomes short of breath on exertion and has no issues with breathing at rest. She denies any chest pain, chest pressure, SOB at rest, fever, chills, abdominal pain, abdominal cramping, diarrhea, nausea, vomiting, bloody stools, headache, visual changes. Med Hx: ITP, reported hyperthyroidism Soc Hx: Denies tobacco or illicit drug use. Notes drinking 3-4 alcoholic beverages on the weekends Fam Hx: Denies any family history of ITP, Hemophilias, von Willebrand Disease Principal Diagnosis ITP Covid-19 Community-acquired pneumonia Irregular menses Discharge Exam Constitutional WD/WN, vitals as above Eyes EOM intact bilaterally; no conjunctival abnormality ENMT external ear and nose normal, oropharynx normal Neck trachea midline, no thyromegaly normal visual inspection Respiratory normal respiratory effort, lungs clear to auscultation + cough; no respiratory distress and not tachypneic Cardiovascular RRR, no murmur, no edema Gastrointestinal (Abdomen) Inspection/Auscultation: abdomen normal to inspection; abdomen not distended Musculoskeletal no cyanosis or clubbing, extremities motor strength 5/5 Skin no rashes, warm and dry Neurologic moves all extremities and awake Psychiatric Orientation: alert, oriented to person and cooperative Discharge Data Allergies Allergy/AdvReac Type Severity Reaction Status Date / Time No Known Allergies Allergy Verified 03/08/21 02:17 Consultations 03/08/21 05:18 ED Decision to Admit Stat 03/08/21 06:47 Consult Hematology Routine Ordered Studies 03/08/21 05:09 CT angio chest PE protocol Stat Hospital Course (1) Acute ITP: Initial presentation in 2013 while in [place]. She reports she received pre dnisone, PRBCs, and platelets at that time. Since then, no recurrence, no need for hospitalization, no transfusions. Occasionally saw provider at [facility] in [place] (where she lives with her aunt during school breaks), but reports she hasn't had labs done in at least a year. - Discussed with hematology (Dr. Madrigal) who saw her on 03/08. - Continue prednisone 50 mg PO daily (1 mg/kg dosing) x 1 week, then consider slow taper of 10 mg decrease per week. - Arranged f/u CBC w/ diff for Saturday. Will see Dr. Madrigal or other hematology provider next week. Dr. Madrigal was in agreement with discharge. (2) Anemia: From iron deficiency from chronic, irregular menorrhagia. Per patient, has had upwards of 20 days of menstrual bleeding per month since November 2020. Despite a hgb of 3.3, her vitals were stable, indicating this is not an acute bleed. - Received 4 units PRBCs on 03/08. Received IV iron on 03/09. - Hgb was 11.5 on discharge. Will get CBC next week as above. (3) Hypothyroid: TSH was 63 this admission with FT4 0.6. Reports history of hyperthyroid, but I think maybe she is confused because she notes a value that was "nearly 100." I suspect this may have been her TSH with the high value indicating hypothyroidism. She took medication for some time, then says her doctor reduced the dose and then held it. It sounds like she was at some point lost to follow-up. She has *not* ever had a thyroid ablation or any thyroid-destructive therapy. - Discharged on levothyroxine 75 mcg PO daily (~1.5 mcg/kg per UTD dosing) - Recheck TSH in 6 weeks (4) Pneumonia: CTA chest on 03/08 showed a dense, RML consolidation that favored a bacterial pneumonia. - Continued ceftriaxone/azithromycin while inpatient. -> Discharge on levofloxacin x 4 more days. (5) COVID-19: Tested positive on admission. Symptoms confounded by her likely bacterial pneumonia. Did *not* receive the Covid vaccine as her doctor in [facility] was worried about thrombocytopenia with the vaccine. - On steroids for ITP - Monitor symptoms -> Never needed any O2. (6) Menorrhagia: As noted above, has been having heavy, irregular menorrhagia for about 4 months. - Discussed control methods; provided literature - Her aunt is an touch up carver. She will discuss methods with her to reduce/organize her menses. (7) DVT prophylaxis: SCDs - Low DVT risk per admission calculator & refrained from chemoprophylaxis giving anemia and thrombocytopenia. Total Time Total Time Spent Total Time Spent (In Minutes): 35 Discharge Plan Discharge Items Patient Disposition: Home - Self-Care Reason For Visit: COVID-19, ITP, SEVERE ANEMIA Discharge Diagnosis: Severe anemia from iron deficiency from irregular menses Covid-19 Community-acquired pneumonia Hypothyroidism (low thyroid) Activity: Resume your previous activity Non-emergency contact: Primary Care Provider and Oncologist Call non-emergency contact if: your symptoms worsen and your temperature is above 101 Follow-up/Referrals: Scooby Madrigal DO [Physician] - (Please see Dr. Mardigal next week.) [facility] [Primary Care Provider] - Diet: Regular Addtl Attending Provider Instructions: Ms. Bess, You were hospitalized due to low blood counts (low hemoglobin) and low platelets. We think the low hemoglobin was due to iron deficiency from your irregular, heavy periods over the last few months. Your iron levels were very low. We gave you 4 units of blood and 1 round of IV iron, and your hemoglobin (measure of red blood cells in the body) has responded beautifully. Your hemoglobin is now 11.5 which is a touch low, but much better than when you came in (when it was 3.3!). Please speak with your aunt or other healthcare provider about control options that would regulate your menses and help reduce the duration and frequency of your period. We will keep you on steroids to help suppress the ITP. We will do prednisone 50 mg by mouth daily for 7 more days. You will then need to taper the dose by 10 mg every week if your platelets are returning to their normal. You will *need* to follow up with Dr. Madrigal or one of his colleagues in the [facility] (around the back of the hospital) to be sure your platelet count is recovering. We are arranging for Davina to draw your blood next Saturday to be sure your platelets are improving. Your platelets have remained somewhat low. This is likely from you living at a slightly lower level due to your ITP. They may also be getting pushed lower due to your Covid-19 infection. We also think you have an element of bacterial pneumonia as well because of the appearance on your CT scan. We will have you on antibiotics for a few more days to ensure your bacterial pneumonia resolves. We found that you are hypothyroid (meaning, low thyroid). The tricky thing is that your TSH (a measure of thyroid function) is high. But this actually means your thyroid is not producing enough hormone. I am not sure about how your thyroid was functioning a few years ago, but right now, we would like to supplement your thyroid. You should follow up with the [facility] in a few weeks to recheck this (likely 4-6 weeks as we discussed). Finally, for your Covid-19, I'm not entirely sure how much of your cough is from pneumonia vs. the Covid. We will assume your positive test as Day 1 . As such, we would recommend you isolate until 03/17/2021. I have provided an excuse to help with any school issues. Pending Studies at Discharge: No Stand-Alone Forms: My [facility] [employer], Work/School Release, Smoking Cessation Medications and DC Order Prescriptions: New levothyroxine [Synthroid] 75 mcg Tablet 75 mcg PO DAILYBB Qty: 30 RF: 1 prednisone 50 mg Tablet 50 mg PO DAILY Qty: 7 RF: 0 levofloxacin 750 mg tablet 750 mg PO DAILY Qty: 4 RF: 0 prednisone 20 mg tablet 40 mg PO DAILY Qty: 14 RF: 0 Continued acetaminophen [Tylenol] 325 mg Tablet 650 mg PO DIRECTED PRN (Reason: FEVER/PAIN) RF: 0 Cough Drops 5.8 mg Lozenge 0 mg PO DIRECTED PRN (Reason: Cough) RF: 0 Discharge Orders: Discharge Order (Routine); Ordered 03/09/21 Ordered By: Manuel Dale Admission Data Admit Date/Time: 03/08/21 05:08 Attending Provider: Manuel Dale Admit Provider: Myke Valles Primary Care Provider: [facility] Other Providers: Scooby Madrigal V. ; Manuel Dale Other Interventions: Discharge Summary Assessment (RN) Last Done: 03/09/21 15:01 Coding Level of Care Code D/C DAY MANAGEMENT >30 MINS Diagnoses Acute ITP D69.3 Anemia D64.9 Anemia type: unspecified type Pneumonia J18.9 Laterality: right Lung location: middle lobe of lung Pneumonia type: due to unspecified organism COVID-19 U07.1 Menorrhagia N92.0 Menorrhagia type: with regular cycle DVT prophylaxis Z29.9 Hypothyroid E03.9
[2021-03-16 10:32] LABS: HCT DNR %; HGB DNR g/dL; Hemoglobin E DNR %; Hemoglobin Variant 1 DNR; Hemoglobin Variant 2 DNR; Hemoglobinopathy Interpret DNR; MCH DNR pg; MCV DNR fL; RDW DNR %
--- NOTE | 2021-03-19 15:47 | Coding Query ---
CODING QUERY To promote full compliance with coding requirements relating to patient care, provider participation is requested in all cases of retail marketing manager uncertainty. Please assist us with the question(s) below: Coding Question(s): The H&P documents, "COVID-19 infection/secondary bacterial pneumonia right middle lobe/right upper lobe/without hypoxia- Dexamethasone 6 mg IV daily Ceftriaxone 1 g IV daily Azithromycin 5 mg IV daily Proventil HFA Guaifenesin extended release 5 mg p.o. twice daily Vitamin D 1000 international units p.o. daily Zinc sulfate 220 mg p.o. daily No anticoagulation due to history of ITP", and the Discharge Summary documents, "COVID-19: Tested positive on admission. Symptoms confounded by her likely bacterial pneumonia. Did *not* receive the Covid vaccine as her doctor in [facility] was worried about thrombocytopenia with the vaccine. - On steroids for ITP - Monitor symptoms -> Never needed any O2", and the add attending provider instructions document, "Your platelets have remained somewhat low. This is likely from you living at a slightly lower level due to your ITP. They may also be getting pushed lower due to your Covid-19 infection". Please specify below, regarding both treatment IV Dexamethasone treatment, and regarding Pneumonia: Please specify below, in your clinical opinion, regarding IV Dexamethasone/IV Steroid treatment: ( ) for treatment of both COVID-19 and ITP ( x ) for treatment of ITP only, not for treatment of COVID-19 ( ) other: Please Specify Please specify below, regarding Pneumonia: ( x ) both COVID-19 Pneumonia and Bacterial Pneumonia ( ) Bacterial Pneumonia only ( ) other: please specify Physician's Response(s): Thank you Mary Hardy Principal Diagnosis: "that condition established after study, to be chiefly responsible for occasioning the admission of the patient to the hospital for care." Co-Existing Principal Diagnosis: "when two or more diagnoses equally meet the criteria for principal diagnosis as determined by the circumstances of admission, diagnostic work up, and/or therapy provided, and the Alphabetic Index, Tabular List, or another coding guideline does not provide sequencing direction, any one of the diagnoses may be sequenced first." "When the physician has documented what appears to be a current diagnosis in the body of the record, but has not included the diagnosis in the final diagnostic statement, the physician should be asked whether the diagnosis should be added." (Source Coding [facility] 2 QTR90. p3-4) ZACHARY
== END 2021-03-09 16:20 | disposition home or self-care (01) | DRG 177 ==
LOC: ED 01:35 → 2E 05:08 → SUATTDRO 05:08 → 2E 06:12

== ENCOUNTER 2021-03-12 10:04 | Inpatient (IN) ==
--- NOTE | 2021-03-12 10:17 | Emergency Department Note ---
Impression & Plan Hypoxia, Pneumonia, Thrombocytopenia, COVID-19 ED Provider Note NAME: ELENO HALL AGE: 20 SEX: F : 2000 ARRIVES VIA: Walk-In INFORMANT: Patient, ED PROVIDER(S): Valdemar Doan MD Chief Complaint: Shortness of breath HPI: Patient did present with a 6-day history of fatigue and shortness of breath was seen here in the hospital on March 08 and admitted to the hospital for Covid. Patient was to follow-up with Dr. Madrigal. Patient had ITP in 2013. Patient did receive prednisone blood transfusion platelets at that time but has had no recurrence or need for transfusion since that time. At the time of her discharge for [facility], the patient was to continue her prednisone. Patient did have a CTA of the chest completed on March 08 which did show a likely bacterial pneumonia so the patient was continued on Rocephin and azithromycin inpatient and then discharged on Levaquin. Patient is unvaccinated for Covid. Patient states that she has had worsening shortness of breath with cough. The patient states that the cough does cause worsening shortness of breath or chest pains. The patient has been compliant taking her prednisone at home without much relief in her symptoms. Patient does state that activity does make her symptoms worse. Patient's had decreased appetite. Patient denies any recent travel, surgeries or procedures. No prior history of DVT or PE. The patient denies any easy bruising or bleeding. ROS: See HPI for pertinent positives and negatives. A total of 10 systems were reviewed and otherwise negative. Past medical history: See below Surgical history: See below Social history: See below Physical Exam: GENERAL: Wearing a mask, nontoxic, nasal cannula in place. EYE EXAM: Normal conjunctiva. PERRL, no anisocoria and EOM's grossly intact w/o pain. NECK: Supple, no nuchal rigidity, no adenopathy, non-tender. No signs of meningismus. LUNGS: Crackles present. Normal chest wall mechanics. HEART: NSR, no MRG. ABDOMEN: Abdomen soft, non-tender, normo-active bowel sounds, no masses, no rebound or guarding. BACK: No CVA TTP. SKIN: No rashes and no bruising. UPPER EXTREMITIES: Upper extremities are grossly normal. LOWER EXTREMITIES: Grossly normal, no edema. Negative Homans' sign bilaterally. NEURO EXAM: A&O x3, cranial nerves II-XII grossly intact, normal speech, moves all 4 extremities on command w/o issue. Differential diagnoses: Reactive airway disease, pneumonia, pneumothorax, COPD, CHF, infections, cardiac ischemia, pulmonary embolism, musculoskeletal, gastrointestinal, as well as other pathologies. Course: Patient was seen and evaluated the bedside. Full history physical exam was performed. EKG interpreted by me Normal sinus rhythm, rate of 90, normal intervals, normal axis, no ST changes, single T WI V2 Imaging Studies: See Below Cardiac monitoring: An order was placed for continuous cardiac monitoring. The monitor shows a rate of 87 with sinus rhythm. MDM: Patient did present with concern for worsening shortness of breath. The patient was hypoxic in triage and placed on nasal cannula supplemental oxygen. Blood work was obtained. The patient was ordered dexamethasone 6 mg due to Covid hypoxia. Patient was also ordered IV fluids. EKG does not show any obvious arrhythmia. Blood work shows a normal white count and hemoglobin. The patient does have thrombocytopenia. Patient does have mild hyponatremia. Troponin undetectable. The patient does have elevated TSH and low free T4. This low free T4 value was borderline low at 0.78. Chest x-ray does show persistent right middle lobe consolidation as well as bilateral lower lobe consolidations. Past Med/Surg History Medical History Acute ITP Hypothyroid Social History Smoking Status: Never smoker Hx Alcohol Use: Yes Alcohol type: beer, wine and hard liquor Hx Substance Use: No Preferred Language: Marshallese Communication Ability: Effective Occupational Medicine Specialist Required: No Beliefs That Will Affect Care: None Current Living Situation: Other Current Living Situation Comment: roomates Other Information That Helps Us Care for You: No Feels Safe at Home: Yes Safety Concerns: Feels Safe At This Time Assistive Devices: None Allergies Allergies Allergy/AdvReac Type Severity Reaction Status Date / Time No Known Allergies Allergy Verified 03/12/21 11:22 Home Meds Home Medications Medication Instructions Recorded Confirmed levofloxacin 750 mg tablet 750 mg PO QAM 03/12/21 03/12/21 Previous Rx's Medication Instructions Recorded levothyroxine 75 mcg tablet 75 mcg PO DAILYBB #30 tab 03/09/21 (Synthroid) prednisone 20 mg tablet 40 mg PO DAILY #14 tab 03/09/21 prednisone 50 mg tablet 50 mg PO DAILY #7 tab 03/09/21 Results & Data (ED) Vital Signs Vital Signs - 24 hr 03/12/21 10:04 03/12/21 10:06 03/12/21 10:10 Temperature 37.3 C Temperature Source Temporal Artery Scan Pulse Rate 119 H Pulse Rate [Finger] Respiratory Rate 18 Respiratory Effort / Characteristics Non-Labored Spontaneous Respiratory Depth Normal Respiratory Pattern Regular Blood Pressure 111/79 Blood Pressure [Right Arm] Blood Pressure Mean 89 Blood Pressure Mean [Right Arm] Blood Pressure Position [Right Arm] Pulse Oximetry 80 L 80 L 94 Oxygen Delivery Method Room Air Room Air Nasal Cannula Oxygen Flow Rate 4 Sepsis Recent Fever Within 48 Hours No Sepsis New/Unexplained Change in Mental Status No Sepsis Action Taken by Nursing No Action Required Oxygen Flow Rate - Titration 4 Pulse Oximetry Post Tiitration 95 03/12/21 11:18 03/12/21 11:27 Temperature 37.3 C Temperature Source Oral Pulse Rate 88 Pulse Rate [Finger] 88 Respiratory Rate 20 Respiratory Effort / Characteristics Non-Labored Respiratory Depth Normal Respiratory Pattern Regular Blood Pressure Blood Pressure [Right Arm] 111/79 Blood Pressure Mean Blood Pressure Mean [Right Arm] 89 Blood Pressure Position [Right Arm] Lying Pulse Oximetry 96 96 Oxygen Delivery Method Nasal Cannula Nasal Cannula Oxygen Flow Rate 2 2 Sepsis Recent Fever Within 48 Hours Sepsis New/Unexplained Change in Mental Status Sepsis Action Taken by Nursing Oxygen Flow Rate - Titration Pulse Oximetry Post Tiitration Home Medications Current Medication List: was personally reviewed by me Laboratory Data Attestation: I reviewed the patient's lab results. Result diagrams: 03/12/21 10:40 03/12/21 10:40 Lab Results 03/12/21 03/12/21 03/12/21 Range/Units 10:40 10:40 10:40 WBC 6.98 (4.8-10.8) K/uL RBC 5.62 H (4.2-5.4) M/uL Hgb 13.1 (12.0-16.0) g/dL Hct 43.2 (37-47) % MCV 76.9 L (80-100) fL MCH 23.3 L (25-34) pg MCHC 30.3 L (32-36) g/dL Plt Count 48 L (130-400) K/uL Immature Gran % (Auto) 0.9 % Neut % (Auto) 79.2 % Lymph % (Auto) 15.5 % Sunflower % (Auto) 4.3 % Eos % (Auto) 0.0 % Baso % (Auto) 0.1 % Neut # (Auto) 5.53 (1.4-6.5) K/uL Lymph # (Auto) 1.08 L (1.2-3.4) K/uL Sunflower # (Auto) 0.30 (0.11-0.59) K/uL Eos # (Auto) 0.00 (0-0.5) K/uL Baso # (Auto) 0.01 (0-0.2) K/uL Immature Gran # (Auto) 0.06 H (0.00-0.02) K/uL Absolute Nucleated RBC 0.11 H (0-0) K/uL Nucleated RBC % (auto) 1.5 % Platelet Estimate Decreased L (Normal) Polychromasia 2+ Hypochromasia Present Poikilocytosis Present PT 10.8 (9.0-12.0) Seconds INR 1.1 (0.9-1.1) Sodium 132 L (136-145) mmol/L Potassium 3.9 (3.5-5.1) mmol/L Chloride 101 (98-107) mmol/L Carbon Dioxide 28 (21-32) mmol/L Anion Gap 3.0 (3-11) BUN 13 (7-18) mg/dl Creatinine 0.78 (0.6-1.2) mg/dl Est Cr Clr Drug Dosing 93.8 ml/min Est GFR ( Amer) 125.1 ml/min Est GFR (Non-Af Amer) 107.9 ml/min BUN/Creatinine Ratio 16.4 (10-20) Glucose 88 (70-99) mg/dl Calcium 8.5 (8.5-10.1) mg/dl Magnesium 2.2 (1.8-2.4) mg/dl Total Bilirubin 1.4 H (0.2-1) mg/dl AST 24 (15-37) U/L ALT 10 L (12-78) U/L Alkaline Phosphatase 51 (45-117) U/L Troponin I < 0.015 (0-0.045) ng/ml Total Protein 7.4 (6.4-8.2) gm/dl Albumin 3.4 (3.4-5.0) gm/dl Globulin 4.0 (2.5-4.0) gm/dl Albumin/Globulin Ratio 0.9 (0.9-2) TSH 68.100 H (0.300-4.500) uIu/ml Free T4 0.78 L (0.8-1.6) ng/dl Administered Medications Discontinued Medications Dexamethasone Sodium Phosphate (DexamethasonePf 10 Mg/Ml Vial) 6 mg IV NOW ONE Stop: 03/12/21 10:21 Last Admin: 03/12/21 11:06 Dose: 6 mg Documented by: [id number] Furosemide (Furosemide 40 Mg/4 Ml Vial) 40 mg IV NOW STA Stop: 03/12/21 12:30 Last Admin: 03/12/21 13:26 Dose: Not Given Documented by: [id number] Furosemide (Furosemide 40 Mg/4 Ml Vial) Confirm Administered Dose 40 mg IV .STK- MED ONE Stop: 03/12/21 13:05 Last Admin: 03/12/21 13:10 Dose: 40 mg Documented by: [id number] Sodium Chloride (Nss 1000ml) 1,000 mls @ 999 mls/hr IV .Q1H1M ALINA Stop: 03/12/21 11:30 Last Infusion: 03/12/21 12:18 Dose: 0 mls/hr Documented by: [id number] Admin: 03/12/21 11:10 Dose: 999 mls/hr Documented by: [id number] Levofloxacin (Levofloxacin 750 Mg Tab) 750 mg PO ONE STA Stop: 03/12/21 12:32 Last Admin: 03/12/21 13:26 Dose: Not Given Documented by: [id number] Levofloxacin (Levofloxacin 500 Mg Tab) Confirm Administered Dose 500 mg PO .STK- MED ONE Stop: 03/12/21 13:05 Last Admin: 03/12/21 13:10 Dose: 500 mg Documented by: [id number] Levofloxacin (Levofloxacin 250 Mg Tablet) Confirm Administered Dose 250 mg PO .STK-MED ONE Stop: 03/12/21 13:05 Last Admin: 03/12/21 13:10 Dose: 250 mg Documented by: [id number] Imaging Data Radiologist's Impression: Chest X-Ray 03/12/21 10:17 XR chest 1V portable CLINICAL HISTORY: weakness COMPARISON STUDY: Chest radiograph and chest CT March 08, 2021. FINDINGS: There is no pneumothorax. There are suspected small bilateral pleural effusions. Dense right middle lobe consolidation persists. Extensive bilateral lower lobe consolidation has developed. This may reflect a hypoventilatory study. Mild enlargement of the cardiac silhouette is noted. IMPRESSION: 1. Persistent right middle lobe consolidation and interval development of extensive bilateral lower lobe consolidation. The findings represent pneumonia which may be bacterial or viral in etiology. 2. Small bilateral pleural effusions. 3. Mild enlargement of the cardiac silhouette. ACT 112: Negative or not required by law. Electronically signed by: Brock Mukherjee M.D. 03/12/2021 10:38 AM Discharge Plan Visit Data Chief Complaint: Shortness of Breath/Dyspnea Stated Complaint: COVID +, INCREASED SOB ED Provider: Valdemar Doan Discharge Problem: Hypoxia, Pneumonia, Thrombocytopenia, COVID-19 Patient Disposition: Admitted As Inpatient Discharge Instructions Interventions: ED Discharge Assessment Last Done: 03/12/21 13:40
[2021-03-12] MEDS ORDERED: dexAMETHasone**PF** 10 MG/ML VIAL IV ONE (10:20)
[2021-03-12] MEDS ORDERED: SODIUM CHLORIDE 0.9% 1000ML 1,000 ML IV SCH (10:30)
--- NOTE | 2021-03-12 10:39 | XRay Report ---
XR chest 1V portable CLINICAL HISTORY: weakness COMPARISON STUDY: Chest radiograph and chest CT March 08, 2021. FINDINGS: There is no pneumothorax. There are suspected small bilateral pleural effusions. Dense righ t middle lobe consolidation persists. Extensive bilateral lower lobe consolidation has developed. Thi s may reflect a hypoventilatory study. Mild enlargement of the cardiac silhouette is noted. IMPRESSION: 1. Persistent right middle lobe consolidation and interval development of extensive bilateral lower l obe consolidation. The findings represent pneumonia which may be bacterial or viral in etiology. 2. Small bilateral pleural effusions. 3. Mild enlargement of the cardiac silhouette. ACT 112: Negative or not required by law. Electronically signed by: Brock Mukherjee M.D. 03/12/2021 10:38 AM
[2021-03-12 10:56] LABS: Mean Corpuscular Hgb Conc 30.3 g/dL (32-36); Nucleated RBC # (auto) 0.11 K/uL (0-0); Nucleated RBC % (auto) 1.5 %
[2021-03-12 10:59] LABS: Hematocrit (blood only) 43.2 % (37-47); Hemoglobin 13.1 g/dL (12.0-16.0); Mean Corpuscular Hemoglobin 23.3 pg (25-34); Mean Corpuscular Volume 76.9 fL (80-100); Red Blood Count 5.62 M/uL (4.2-5.4); White Blood Count 6.98 K/uL (4.8-10.8)
[2021-03-12 11:18] LABS: Alanine Aminotransferase 10 U/L (12-78); Albumin Level 3.4 gm/dl (3.4-5.0); Aspartate Aminotransferase 24 U/L (15-37); BUN Creatinine Ratio 16.4 (10-20); Blood Urea Nitrogen 13 mg/dl (7-18); Calcium 8.5 mg/dl (8.5-10.1); Carbon Dioxide 28 mmol/L (21-32); Chloride 101 mmol/L (98-107); Creatinine Clr Calc Pharmacy 93.8 ml/min; Est GFR (African American) 125.1 ml/min; Est GFR (Non-African American) 107.9 ml/min; Glucose 88 mg/dl (70-99); Magnesium 2.2 mg/dl (1.8-2.4); Potassium 3.9 mmol/L (3.5-5.1); Sodium 132 mmol/L (136-145)
[2021-03-12 11:22] LABS: Platelet Count 48 K/uL (130-400)
[2021-03-12 11:23] LABS: Basophils # (auto) 0.01 K/uL (0-0.2); Basophils % (auto) 0.1 %; Hypochromasia Present; Immature Granulocytes # (auto) 0.06 K/uL (0.00-0.02); Immature Granulocytes % (auto) 0.9 %; Lymphocytes # (auto) 1.08 K/uL (1.2-3.4); Lymphocytes % (auto) 15.5 %; Monocytes % (auto) 4.3 %; Neutrophils # (auto) 5.53 K/uL (1.4-6.5); Neutrophils % (auto) 79.2 %; Platelet Estimate Decreased (Normal); Poikilocytosis Present; Polychromasia 2+
[2021-03-12 11:25] LABS: INR 1.1 (0.9-1.1); Prothrombin Time 10.8 Seconds (9.0-12.0)
[2021-03-12 11:29] LABS: Albumin Globulin Ratio 0.9 (0.9-2); Alkaline Phosphatase 51 U/L (45-117); Bilirubin,Total 1.4 mg/dl (0.2-1); Total Protein 7.4 gm/dl (6.4-8.2); Troponin I < 0.015 ng/ml (0-0.045)
[2021-03-12 11:46] LABS: T4 Free Thyroxine 0.78 ng/dl (0.8-1.6)
--- NOTE | 2021-03-12 12:03 | History & Physical Report ---
Date of Service March 12, 2021 Assessment & Plan (1) Hypoxia: Plan: Secondary to COVID-19 pneumonia and pulmonary edema Aim O2 sats > 94% (2) Pulmonary edema: Plan: CXR per my read - fluid in horizontal fissure, increased bilateral perihilar opacities and pleural effusions all consistent with fluid overload. Suspect from IV fluids, blood transfusions last admission, COVID and steroids. Low suspicion of heart failure (secondary to COVID myositis) given normal troponin Recommend echocardiogram as outpatient but given negative troponin does not have to be done as inpatient. Given 1L NSS bolus given in ER. Start Lasix 40mg IV now then daily Monitor I&OS Daily weights Monitor Cr daily and adjust Lasix dosing (3) COVID-19: Plan: Prednisone favored over dexamethasone due to higher equivalent dose recommended for ITP treatment Monitor CRP COVID isolation (4) Pneumonia: Plan: Levaquin 750mg PO 2 further days per prior discharge summary Add procalcitonin to labs (5) Acute ITP: Plan: Continue prednisone 50mg PO daily (4 further days then reduce by 10mg/week per prior discharge summary). Would favor this over dexamethasone. Monitor CBC daily (6) Thrombocytopenia: Plan: As above (7) Anemia: Plan: Resolved with blood transfusions during last hospitalization Monitor CBC daily (8) Hypothyroid: Plan: 75 mcg PO daily started last admission. Continue on this. 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 Main reason she returned to the ER is she is struggling to lie down at night with chest heaviness and shortness of breath. Positive symptoms for paroxsmal nocturnal dyspnea. No palpitations, chest pain, leg swelling Initial symptoms on March 03 (currently day 10 of illness), tested positive on March 08. She was hospitalized here from March 082020 due to COVID-19 pneumonia, suspected bacterial pneumonia (procalcitonin negative, based on consolidation on CT), severe iron deficient anemia (Hgb 3.3) and thrombocytopenia. Blood cultures were negative. CT angiogram on 03/08 negative for pulmonary emboli. She was not hypoxic for COVID-19. bacterial PNA treated with ceftriaxone and azithromycin during admission and switched to Levaquin on discharge. Anemia treated with 4 units packed RBCs with discharge hemoglobin 11.5. ITP treated with prednisone 50mg PO daily In the ER her hemoglobin (Hgb 13.1) and thrombocytopenia (Plt 48) have improved. However due to worsening symptoms and now requiring 2LPM O2 to maintain O2 sats she was referred to medicine for admisssion and ongoing management of COVID-19 pneumonia. Allergies Allergy/AdvReac Type Severity Reaction Status Date / Time No Known Allergies Allergy Verified 03/12/21 11:22 Home Medications Medication Instructions Recorded Confirmed Type levothyroxine 75 mcg tablet 75 mcg PO DAILYBB #30 tab 03/09/21 03/12/21 Rx (Synthroid) prednisone 20 mg tablet 40 mg PO DAILY #14 tab 03/09/21 03/12/21 Rx prednisone 50 mg tablet 50 mg PO DAILY #7 tab 03/09/21 03/12/21 Rx levofloxacin 750 mg tablet 750 mg PO QAM 03/12/21 03/12/21 History Past Med/Surg History Medical History (Updated 03/12/21 @ 12:41 by Evan Lew MD) Acute ITP Hypothyroid Social History Smoking Status: Never smoker Hx Alcohol Use: Yes Alcohol type: beer, wine and hard liquor Hx Substance Use: No Preferred Language: Tajik Communication Ability: Effective Salvage Determiner Required: No Beliefs That Will Affect Care: None Current Living Situation: Other Current Living Situation Comment: roomates Other Information That Helps Us Care for You: No Feels Safe at Home: Yes Safety Concerns: Feels Safe At This Time Assistive Devices: None Review of Systems Review of Systems: All systems reviewed & are unremarkable except as noted in HPI & below Physical Exam Constitutional: WD/WN, vitals as above Eyes: + anicteric sclerae; normal pupil size ENMT: external ear and nose normal, oropharynx normal Neck: trachea midline, no thyromegaly Respiratory: normal respiratory effort; no respiratory distress, no labored breathing, does not use accessory muscles, no cough and not tachypneic Auscultation: + diminished lung sounds (bibasal) and + crackles (posteriorly throughout); no wheezes Cardiovascular: RRR, no murmur, no edema Vessels: no JVD Extremities: normal capillary refill; no calf tenderness and no pedal edema Gastrointestinal (Abdomen): normal bowel sounds, soft, nontender, no hepatosplenomegaly Musculoskeletal: no cyanosis or clubbing, extremities motor strength 5/5 Skin: no rashes, warm and dry Neurologic: moves all extremities and awake; no focal motor deficits and not confused Psychiatric: A+Ox3, euthymic affect Results & Data Results & Data ([facility]) Vital Signs (Past 12 Hours) Vital Signs Temp Pulse Resp BP Pulse Ox 03/12/21 11:18 88 20 96 03/12/21 10:10 94 03/12/21 10:06 37.3 C 119 H 18 111/79 80 L 03/12/21 10:04 80 L Diagnostic Findings XR chest 1V portable FINDINGS: There is no pneumothorax. There are suspected small bilateral pleural effusions. Dense right middle lobe consolidation persists. Extensive bilateral lower lobe consolidation has developed. This may reflect a hypoventilatory study. Mild enlargement of the cardiac silhouette is noted. IMPRESSION: 1. Persistent right middle lobe consolidation and interval development of extensive bilateral lower lobe consolidation. The findings represent pneumonia which may be bacterial or viral in etiology. 2. Small bilateral pleural effusions. 3. Mild enlargement of the cardiac silhouette. Medications Administered ER Medications Given: NSS 1L bolus Dexamethasone 6mg IV ECG Indication: SOB/dyspnea Rate (beats per minute): 90 Rhythm: normal sinus Findings: no acute ischemic change Comparison ECG Date: from (March 08, 2021) Change: no significant change Code Status & VTE Plan Code Status Full VTE Prophylaxis Plan VTE Prophylaxis will be ordered: Yes Reason for no VTE drug order: Contraindicated (Plt < 50) PG Care Time/CCT Total # of Minutes Spent Total Time Spent with Patient: Total time spent is greater than 50% in coordination of care (as documented) at patient's floor/unit and/or counseling patient: Coding Level of Care Code 82907 Initial Inpt Care Lvl 3 Diagnoses Hypothyroid E03.9 Acute ITP D69.3 Pneumonia J18.9 Laterality: right Lung location: middle lobe of lung Pneumonia type: due to unspecified organism COVID-19 U07.1 Anemia D64.9 Anemia type: unspecified type Thrombocytopenia D69.6 Menorrhagia N92.0 Menorrhagia type: with regular cycle Hypoxia R09.02 Pulmonary edema J81.1 (1) Menorrhagia Menorrhagia type: with regular cycle Qualified Code(s): N92.0 - Excessive and frequent menstruation with regular cycle (2) Anemia Anemia type: unspecified type Qualified Code(s): D64.9 - Anemia, unspecified (3) Pneumonia Laterality: right Lung location: middle lobe of lung Pneumonia type: due to unspecified organism Qualified Code(s): J18.9 - Pneumonia, unspecified organism
[2021-03-12] MEDS ORDERED: FUROSEMIDE 40 MG/4 ML VIAL IV STA (12:29)
[2021-03-12] MEDS ORDERED: levoFLOXacin 750 MG TAB PO STA (12:31)
[2021-03-12 12:56] LABS: Fibrinogen 363 mg/dl (184-400); Partial Thromboplastin Ratio 1.3; Partial Thromboplastin Time 34.5 Seconds (21.0-31.0)
[2021-03-12] MEDS ORDERED: FUROSEMIDE 40 MG/4 ML VIAL IV ONE (13:04)
[2021-03-12] MEDS ORDERED: levoFLOXacin 500 MG TAB PO ONE (13:04)
[2021-03-12] MEDS ORDERED: levoFLOXacin 250 MG TABLET PO ONE (13:04)
[2021-03-12 13:12] LABS: D Dimer 980 ug/L FEU (0-500)
[2021-03-12 13:43] LABS: Appearance Urine Clear (Clear); Bacteria Urine Automated Negative (Negative); Bilirubin Urine Negative (Negative); Blood Urine Trace (Negative); Cast Urine Automated 0 /lpf (0-5); Color Urine Yellow; Glucose Urine UA Negative (Negative); Ketones Urine Negative (Negative); Leukocyte Esterase Urine Negative (Negative); Nitrite Urine Negative (Negative); Protein Urine Negative (Negative); RBC Urine Automated 0-4 /hpf (0-4); Specific Gravity Urine 1.008 (1.000-1.030); Urobilinogen Urine Negative (Negative); WBC Urine Automated 0 /hpf (0-5); pH Urine 6.5 (4.5-7.5)
[2021-03-12 13:48] LABS: Pregnancy Test, Urine Negative (Negative)
[2021-03-12] MEDS ORDERED: ACETAMINOPHEN 325 MG TAB PO PRN (14:08)
[2021-03-12] MEDS ORDERED: POLYETHYLENE (MIRALAX) 17 GM PACK PO PRN (14:08)
[2021-03-13] MEDS ORDERED: BENZONATATE 100 MG CAPSULE PO PRN (04:04)
[2021-03-13] MEDS: LEVOTHYROXINE SODIUM 75 MCG TABLET PO SCH (06:34)
[2021-03-13 06:51] LABS: Hematocrit (blood only) 40.3 % (37-47); Hemoglobin 11.9 g/dL (12.0-16.0); Mean Corpuscular Hgb Conc 29.5 g/dL (32-36); Mean Corpuscular Volume 77.8 fL (80-100); Nucleated RBC # (auto) 0.07 K/uL (0-0); Platelet Count 24 K/uL (130-400); Red Blood Count 5.18 M/uL (4.2-5.4); White Blood Count 7.33 K/uL (4.8-10.8)
[2021-03-13 06:52] LABS: BUN Creatinine Ratio 34.4 (10-20); Basophils # (auto) 0.01 K/uL (0-0.2); Basophils % (auto) 0.1 %; C Reactive Protein 3.93 mg/dl (0-0.29); Calcium 8.8 mg/dl (8.5-10.1); Creatinine Clr Calc Pharmacy 110.8 ml/min; Eosinophils # (auto) 0.01 K/uL (0-0.5); Eosinophils % (auto) 0.1 %; Est GFR (African American) 147.6 ml/min; Est GFR (Non-African American) 127.3 ml/min; Hypochromasia Present; Immature Granulocytes # (auto) 0.04 K/uL (0.00-0.02); Immature Granulocytes % (auto) 0.5 %; Lymphocytes # (auto) 0.97 K/uL (1.2-3.4); Lymphocytes % (auto) 13.2 %; Monocytes # (auto) 0.52 K/uL (0.11-0.59); Monocytes % (auto) 7.1 %; Neutrophils # (auto) 5.78 K/uL (1.4-6.5); Ovalocytes 1+; Platelet Estimate SIGNIFIC DECREASED (Normal); Polychromasia 1+; Potassium 3.5 mmol/L (3.5-5.1); Target Cells 1+
[2021-03-13 06:55] LABS: Albumin Globulin Ratio 0.8 (0.9-2); Globulin 3.8 gm/dl (2.5-4.0); Total Protein 6.8 gm/dl (6.4-8.2)
[2021-03-13] MEDS: predniSONE 50 MG TAB PO SCH (07:50)
--- NOTE | 2021-03-13 08:38 | Electrocardiogram Report ---
Test Reason : Blood Pressure : / mmHG Vent. Rate : 090 BPM Atrial Rate : 090 BPM P-R Int : 112 ms QRS Dur : 074 ms QT Int : 334 ms P-R-T Axes : 046 054 034 degrees QTc Int : 408 ms Poor data quality, interpretation may be adversely affected Normal sinus rhythm Left atrial enlargement Borderline ECG When compared with ECG of 08-MAR-2021 02:30, Nonspecific T wave abnormality no longer present Confirmed by Lloyd Kerr ([id number]) on 03/13/2021 8:37:46 AM Referred By: REFERRED SELF Confirmed By:Lloyd Kerr
[2021-03-13] MEDS ORDERED: FUROSEMIDE 40 MG/4 ML VIAL IV SCH ×2 (09:00)
[2021-03-13] MEDS ORDERED: levoFLOXacin 750 MG TAB PO SCH (09:00)
[2021-03-13] MEDS ORDERED: POTASSIUM CHLORIDE CRTAB 20 MEQ TABCR PO SCH (10:15)
[2021-03-13] MEDS: MAGNESIUM OXIDE 400 MG TAB PO SCH ×2 (10:58→19:36)
--- NOTE | 2021-03-13 12:51 | XRay Report ---
SINGLE VIEW CHEST CLINICAL HISTORY: Pneumonia and/or congestive heart failure. FINDINGS: An AP, portable, upright chest radiograph is compared to study dated 03/12/2021 and correlate d with chest CT dated 03/08/2021. The cardiomediastinal silhouette is unremarkable. There are layering pleural effusions with bibasilar consolidation. No pneumothorax is seen. The bony thorax is grossly i ntact. IMPRESSION: Layering pleural effusions and bibasilar airspace consolidation is similar in appearance to yesterday. These findings favor pneumonia and radiographic follow-up to resolution is recommended. ACT 112: Negative or not required by law. Electronically signed by: Dequan Frye M.D. 03/13/2021 12:50 PM
--- NOTE | 2021-03-13 14:36 | XCELERA ---
[id number]
[2021-03-13] MEDS: ALBUTEROL HFA 8 GM INHALER INH SCH ×2 (16:46→19:13)
[2021-03-13] MEDS: guaiFENesin 600 MG TABCR PO SCH (19:36)
--- NOTE | 2021-03-13 20:13 | Hospitalist Progress Note ---
Date of Service March 13, 2021 Assessment & Plan (1) Acute respiratory failure with hypoxia: Plan: 2nd to COVID-19 pneumonia, possible bacterial superinfection/pneumonia, and possible pulmonary edema s/p lasix x 2 doses over the last 24 hours. Despite diuresis there is no significant clinical improvement. Continue NC O2. Supportive care. See below. (2) Pneumonia due to COVID-19 virus: Plan: She is about day #10/11 into her illness. She continues on prednisone for #4 below which will also serve to treat her COVID pneumonia. We discussed proning extensively during my bedside visit. Encourage frequent self-proning. Add flutter valve. Cont incentive donato. Add mucinex. Her troponin is negative suggesting no myocarditis from COVID. Of note - CTA chest during prior admission showed RML consolidation and thus was treated for bacterial superinfection. Today is day #7 of IV/PO antibiotic therapy to cover for such. Stop antibiotics after today's dose. (3) Pulmonary edema: Plan: Suspected. s/p lasix yesterday and again this am. Her cxr is unchanged despite diuresis, and she is unchanged clinically. Will stop diuresis. Echo today showed low-normal EF of 50-55%. Her troponin is negative suggesting no myocarditis. However, her low-normal EF may be a function of simply being very ill. Will need f/u echo in 1-2 months to recheck EF. Further, will need to monitor carefully for development of pericarditis given her small pericardial effusion. (4) Acute ITP: Plan: Patient dx with ITP as a teenager. Did not have f/u for such in quite some time, however. Dr Madrigal from oncology formally consulted during the prior admission. Advised prednisone with slow taper. Her platelets continue to be low and have worsened since yesterday. Peripheral destruction likely in the setting of her COVID-19 illness. She also has splenomegaly on physical exam. Spoke with Dr Madrigal - will likely consult him formally tomorrow am. Repeat CBC w/ diff in am. May need IVIG if any worsening. No evidence of TTP. (5) Hypothyroid: Plan: New diagnosis made during prior admission. Severe. Just initiated on synthroid 75mcg daily. Repeat TSH in ~6 weeks. (6) Iron deficiency anemia: Plan: Severe. 2nd to menorrhagia. Ferritin <5. s/p venofer during prior admission. consider repeat infusion of such. H/H remain stable. Repeat CBC in am. Recent b12/folate wnl. No evidence of active hemolysis at this time. (7) DVT prophylaxis: Plan: chemical means contraindicated due to severe thrombocytopenia from ITP. thus - SCDs. at high risk of VTE due to COVID-19 illness. Admission and Anticipated Discharge Date Admission Date: March 12, 2021 Subjective tele stable overnight. patient states she has ongoing poor appetite, fatigue, cough, difficulty taking deep breaths, mild pleuritic pain centrally, and also mild difficulty with laying flat. she feels no better than yesterday despite aggressive diuresis. staff report only 500cc of UOP with lasix this am. denies any loss of taste or smell. admits to no f/u with hematology over the last few years. did have progressive fatigue starting earlier this summer in December. has severe menorrhagia. reports both sisters are in [place] right now. offered to call 1 of her sisters but she declined. Review of Systems Review of Systems: gen - fatigue, anorexia ENT - no nasal congestion GI - no vomiting or diarrhea Pulm - no hemoptysis Physical Exam Physical Exam: Gen: sickly, looks tired ENT: MM dry Neck: no JVD Heart: RRR, s1 s2, no murmur lungs: severely decreased BS bases, poor air movement throughout, mild rales bases; no increased work of breathing Abd: soft, NT, splenomegaly present, BS+, no hepatomegaly Ext: no edema skin: no rash, no petechiae, no ecchymoses Results & Data Results & Data ([facility]) Vital Signs (Past 12 Hours) Vital Signs Temp Pulse Resp BP Pulse Ox 03/13/21 19:33 36.7 C 84 18 103/70 91 03/13/21 19:15 81 16 91 03/13/21 16:47 86 20 91 03/13/21 15:38 37.6 C H 98 H 22 97/61 L 95 Laboratory Results Laboratory Results - last 24 hr 03/13/21 03/13/21 05:59 05:59 WBC 7.33 RBC 5.18 Hgb 11.9 L Hct 40.3 MCV 77.8 L MCH 23.0 L MCHC 29.5 L Plt Count 24 L* Immature Gran % (Auto) 0.5 Neut % (Auto) 79.0 Lymph % (Auto) 13.2 Fleming % (Auto) 7.1 Eos % (Auto) 0.1 Baso % (Auto) 0.1 Neut # (Auto) 5.78 Lymph # (Auto) 0.97 L Fleming # (Auto) 0.52 Eos # (Auto) 0.01 Baso # (Auto) 0.01 Immature Gran # (Auto) 0.04 H Absolute Nucleated RBC 0.07 H Nucleated RBC % (auto) 1.0 Platelet Estimate SIGNIFIC DECREASED Polychromasia 1+ Hypochromasia Present Target Cells 1+ Ovalocytes 1+ Sodium 137 Potassium 3.5 Chloride 101 Carbon Dioxide 29 Anion Gap 7.0 BUN 22 H D Creatinine 0.63 Est Cr Clr Drug Dosing 110.8 Est GFR ( Amer) 147.6 Est GFR (Non-Af Amer) 127.3 BUN/Creatinine Ratio 34.4 H Glucose 115 H Calcium 8.8 Total Bilirubin 1.0 AST 17 ALT 10 L Alkaline Phosphatase 42 L C-Reactive Protein 3.93 H Total Protein 6.8 Albumin 3.0 L Globulin 3.8 Albumin/Globulin Ratio 0.8 L Diagnostic Findings Chest X-Ray 03/13/21 10:14 SINGLE VIEW CHEST CLINICAL HISTORY: Pneumonia and/or congestive heart failure. FINDINGS: An AP, portable, upright chest radiograph is compared to study dated 03/12/2021 and correlated with chest CT dated 03/08/2021. The cardiomediastinal silhouette is unremarkable. There are layering pleural effusions with bibasilar consolidation. No pneumothorax is seen. The bony thorax is grossly intact. IMPRESSION: Layering pleural effusions and bibasilar airspace consolidation is similar in appearance to yesterday. These findings favor pneumonia and radiographic follow-up to resolution is recommended. ACT 112: Negative or not required by law. Electronically signed by: Dequan Frye M.D. 03/13/2021 12:50 PM Echo - EF 50-55%; small pericardial effusion; IVC normal; effusions b/l. PG Care Time/CCT Total # of Minutes Spent Total Time Spent with Patient: Total time spent is greater than 50% in coordination of care (as documented) at patient's floor/unit and/or counseling patient: Coding Level of Care Code 90212 Subseq Hosp Care Lvl 3 Diagnoses Acute respiratory failure with hypoxia J96.01 Pneumonia due to COVID-19 virus U07.1; J12.82 Pulmonary edema J81.1 Acute ITP D69.3 Hypothyroid E03.9 Iron deficiency anemia D50.9 DVT prophylaxis Z29.9
[2021-03-14] MEDS: LEVOTHYROXINE SODIUM 75 MCG TABLET PO SCH (06:26)
[2021-03-14 06:44] LABS: Anisocytosis Present; Basophils # (auto) 0.02 K/uL (0-0.2); Basophils % (auto) 0.5 %; Giant Platelets 3+; Hemoglobin 12.8 g/dL (12.0-16.0); Hypochromasia Present; Immature Granulocytes # (auto) 0.03 K/uL (0.00-0.02); Immature Granulocytes % (auto) 0.7 %; Lymphocytes # (auto) 0.72 K/uL (1.2-3.4); Lymphocytes % (auto) 16.9 %; Mean Corpuscular Hemoglobin 23.6 pg (25-34); Mean Corpuscular Hgb Conc 29.8 g/dL (32-36); Mean Corpuscular Volume 79.2 fL (80-100); Monocytes # (auto) 0.48 K/uL (0.11-0.59); Monocytes % (auto) 11.3 %; Neutrophils # (auto) 3.01 K/uL (1.4-6.5); Neutrophils % (auto) 70.6 %; Nucleated RBC # (auto) 0.04 K/uL (0-0); Nucleated RBC % (auto) 0.9 %; Platelet Count 5 K/uL (130-400); Platelet Estimate SIGNIFIC DECREASED (Normal); Polychromasia 1+; Red Blood Count 5.43 M/uL (4.2-5.4); Tear Drop Cells 2+; White Blood Count 4.26 K/uL (4.8-10.8)
[2021-03-14 06:57] LABS: BUN Creatinine Ratio 42.8 (10-20); Blood Urea Nitrogen 25 mg/dl (7-18); Calcium 9.2 mg/dl (8.5-10.1); Carbon Dioxide 29 mmol/L (21-32); Chloride 101 mmol/L (98-107); Creatinine Clr Calc Pharmacy 116.7 ml/min; Est GFR (African American) > 150.0 ml/min; Est GFR (Non-African American) 130.8 ml/min; Glucose 122 mg/dl (70-99); Magnesium 2.6 mg/dl (1.8-2.4); Sodium 135 mmol/L (136-145)
[2021-03-14] MEDS: ALBUTEROL HFA 8 GM INHALER INH SCH ×4 (07:13→19:29)
[2021-03-14] MEDS ORDERED: IMMUNE GLOBULIN (HUMAN) SOLN IV ONE (08:21)
[2021-03-14] MEDS: guaiFENesin 600 MG TABCR PO SCH ×2 (08:47→20:59)
[2021-03-14] MEDS: predniSONE 50 MG TAB PO SCH (08:47)
[2021-03-14] MEDS ORDERED: ACETAMINOPHEN 500 MG TAB PO SCH (09:00)
[2021-03-14] MEDS ORDERED: diphenhydrAMINE Capsule 25 MG CAP PO SCH (09:00)
[2021-03-14] MEDS ORDERED: IMMUNE GLOBULIN 10% IV SCH (09:00)
[2021-03-14] MEDS: IMMUNE GLOBULIN(HUMAN) 10% 100 ML IV SCH ×5 (10:20→13:18)
--- NOTE | 2021-03-14 12:56 | Consultation Report ---
HEMATOLOGY CONSULTATION DATE OF SERVICE: 03/14/2021 REASON FOR CONSULTATION: Idiopathic thrombocytopenic purpura. 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 At that time, it appeared that she had a combination of iron deficiency as well a s possible hemolytic disease. Antibody studies done prior to infusion suggested possible cold agglut inins. She received IV iron and hemoglobin at present is actually quite good. Unfortunately, despit e oral prednisone, her platelets have faltered, I suspect, in the setting of COVID-19 infection. Leila rted by the hospitalist service for platelet count of 5. She is currently on 50 mg of prednisone p.o . daily. Thus, instructed Dr. Dejesus to proceed with IVIG 1 gram/kg both today and perhaps again dulce rrow. The patient also received iron sucrose in last admission and we will instruct an additional do se be provided during the present admission. The patient clinically seems to be doing much better. She is conversant and advised me she returned to the hospital because she became more short of breath roughly the 48 hours she was home from initial admission. The patient offers no specific complaints otherwise. PAST MEDICAL HISTORY: Positive for hypothyroidism, ITP, iron-deficiency anemia. PAST SURGICAL HISTORY: Negative. CURRENT MEDICATIONS: Levofloxacin 750 mg p.o. daily, prednisone 50 mg p.o. daily, levothyroxine 75 m cg p.o. daily. ALLERGIES: No known drug allergies. 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 She is a nonsmoker. She does drink alcohol on social occasions. Negative for illicit substances. FAMILY HISTORY: Noncontributory. PHYSICAL EXAMINATION: CONSTITUTIONAL: As per HPI, most notably for increased shortness of breath, dyspnea on exertion. Ne gative for fevers, chills or sweats. SKIN: No lesions or history of dermatoses. HEENT: Negative for headaches, lightheadedness or dizziness. No visual or hearing deficits. No sin us symptoms, sore throat or dysphagia. LYMPHATICS: No history of lymphoproliferative disease. CARDIAC: No history of coronary artery disease, no angina or palpitations. PULMONARY: As per HPI. GASTROINTESTINAL: Negative for abdominal pain, nausea, vomiting, diarrhea or constipation, hematoche guadalupe or melena stools. GENITOURINARY: No hematuria, dysuria, or urinary incontinence. PSYCHIATRIC: Negative for anxiety, depression, or psychoses. ENDOCRINE: Positive for hypothyroidism. MUSCULOSKELETAL: Negative for arthralgias. No focal muscle weakness. NEUROLOGIC: Negative for seizure, stroke or migraine headache. HEMATOLOGIC: Positive for severe thrombocytopenia. PHYSICAL EXAMINATION: GENERAL: A very pleasant 20-year-old female in no acute distress. VITAL SIGNS: Temperature 36.8, pulse 77, respiratory rate 18, blood pressure 101/68. SKIN: Warm, dry, noncyanotic without petechia, rash or ecchymosis. HEENT: Head atraumatic, normocephalic. Eyes: PERRLA. EOMI. Sclerae are nonicteric. Nares patent without rhinorrhea or discharge. Throat is clear. Tongue midline. NECK: Supple. HEART: Regular rate and rhythm. No clicks, rubs, murmurs or gallops. LUNGS: Relatively clear to auscultation, stethoscope suboptimal. ABDOMEN: Soft, nontender, nondistended. No rigidity or guarding. EXTREMITIES: Musculoskeletal strength and pulses are equal in all 4 quadrants. No clubbing, cyanosi s or edema. NEUROLOGICAL: She is awake, alert and oriented x3. Cranial nerves are intact. LABORATORY DATA: WBC count 4260, hemoglobin 12.8, platelet count 5000. Sodium 135, potassium 4.0, c hloride 101, carbon dioxide 29, creatinine 0.58. CHEST X-RAY: Layering pleural effusions and bibasilar airspace consolidation similar in appearance to yesterday. Findings are consistent with pneumonia. IMPRESSION: 1. Immune thrombocytopenia (ITP). 2. COVID-19 pneumonia. 3. History of iron-deficiency anemia. 4. Hypothyroidism. PLAN: I was contacted by Dr. Evan Dejesus of the patient's readmission after a couple of days at [facility] because of progressing shortness of breath and dyspnea on exertion. She was placed back on the [facility] VID-19 wing and alerted me to her platelet count of 5000. Ms. Bess is presently on 50 mg of prednis one, which I would maintain. Recommend adding IV immunoglobulin 1 gram/kg both today and again tomor . I suspect with her ongoing infectious process, her platelets remain refractory and suppressed. I would rather not proceed with rituximab in this setting until she is completely clear of infection if necessary. Additionally, she was profoundly iron deficient during prior admission and received i blayne sucrose x1 dose. I would like her to have another dose of 300 mg iron sucrose intravenously. I plan to reconvene with Cecilia once she is outpatient and cleared from quarantine. She is to meet [facility] gynecology to discuss intrauterine device to control menorrhagia. I have nothing further to add a t this time. I can be contacted by phone if there are any further difficulties. I will continue to follow her periodically during the hospitalization. Job ID: [id number]
--- NOTE | 2021-03-14 21:03 | Hospitalist Progress Note ---
Date of Service March 14, 2021 Assessment & Plan (1) Acute respiratory failure with hypoxia: Plan: 2nd to COVID-19 pneumonia, possible bacterial superinfection/pneumonia, and possible pulmonary edema (at time of admission) s/p lasix x 2 doses. no significant clinical improvement following diuresis arguing that the COVID-19 pneumonia is largest culprit in pulmonary status. Continue NC O2. Supportive care. See below. (2) Pneumonia due to COVID-19 virus: Plan: She is about day #11 to 12 into her illness. She continues on prednisone for #4 below which will also serve to treat her COVID pneumonia. She is out of the window for remdesivir treatment. Again encouraged proning; nursing also encouraging. Cont flutter valve. Cont incentive donato. Cont mucinex. Of note - CTA chest during prior admission showed RML consolidation and thus was treated for bacterial superinfection. She completed a full 7-day stretch of IV/PO antibiotic therapy to cover for such. Abx now stopped. (3) Pulmonary edema: Plan: Suspected. At time of admission. This is in setting of 4 units of PRBCs during prior admission. s/p lasix x 2 doses - did diurese, but no change clinically. Echo with low-normal EF of 50-55%. Her troponin is negative suggesting no myocarditis. However, her low-normal EF may be a function of simply being very ill. Will need f/u echo in 1-2 months to recheck EF. Further, will need to monitor carefully for development of pericarditis given her small pericardial effusion. NO symptoms to date to suggest such. (4) Acute ITP: Plan: Patient dx with ITP as a teenager. Did not have f/u for such in quite some time, however. Dr Madrigal from oncology formally consulted during the prior admission. Advised prednisone with slow taper. Her platelets are now 5 today. Peripheral destruction likely in the setting of her COVID-19 illness. IVIG 1gm/kg today and repeat such tomorrow. tylenol/benadryl pre-meds appreciate Dr Madrigal's repeat consultation. recheck CBC am. (5) Hypothyroid: Plan: New diagnosis made during prior admission. Severe. Just initiated on synthroid 75mcg daily. Repeat TSH in ~6 weeks. (6) Iron deficiency anemia: Plan: Severe. 2nd to menorrhagia. Ferritin <5. s/p venofer during prior admission. consider repeat infusion next couple of days. H/H remain stable. Repeat CBC in am. Recent b12/folate wnl. No evidence of active hemolysis at this time. (7) DVT prophylaxis: Plan: chemical means contraindicated due to severe thrombocytopenia from ITP. thus - SCDs. at high risk of VTE due to COVID-19 illness. (8) Moderate protein-calorie malnutrition: Plan: lost weight earlier this summer. other process besides her hypothyroidism and ITP?? will need w/u for this. Plan: left message for pt's Aunt who is listed as contact in the chart. left the message on her voicemail. Admission and Anticipated Discharge Date Admission Date: March 12, 2021 Subjective patient states she "feels a little better" today. less orthopnea, less dyspnea, and certainly less BECK than previous. no chest pain. no headaches today. eating still poor and continues w/ weakness. no epistaxis or other bleeding. no rashes. received IVIG prior to my bedside rounds and had no side effects and tolerated. still requiring NC O2 2 liters. asks if I can call her aunt who lives in [place] to give update. patient mentions she lost weight this summer - close to 10 pounds. Review of Systems Review of Systems: gen - no fevers or chills CV - no chest pain pulm - no hemoptysis or wheezing GI - no abd pain, nausea or emesis Physical Exam Physical Exam: Gen: sickly, thin, no acute distress ENT: MM not as dry today Neck: no JVD Heart: RRR, s1 s2, no murmur lungs: severely decreased BS bases with poor air movement throughout the bases; minimal basilar rales; no increased work of breathing Abd: soft, NT, splenomegaly present - no change, BS+, no hepatomegaly Ext: no edema skin: no rash, no petechiae, no ecchymoses Results & Data Results & Data ([facility]) Vital Signs (Past 12 Hours) Vital Signs Temp Pulse Resp BP Pulse Ox 03/14/21 20:57 36.4 C L 49 L 16 99/64 L 96 03/14/21 19:30 77 16 88 L 03/14/21 19:15 16 95 03/14/21 16:10 60 24 90 03/14/21 15:35 36.4 C L 52 L 17 104/70 97 03/14/21 10:52 77 18 93 Laboratory Results Laboratory Results - last 24 hr 03/14/21 03/14/21 05:41 05:41 WBC 4.26 L RBC 5.43 H Hgb 12.8 Hct 43.0 MCV 79.2 L MCH 23.6 L MCHC 29.8 L Plt Count 5 L* D Immature Gran % (Auto) 0.7 Neut % (Auto) 70.6 Lymph % (Auto) 16.9 [place] % (Auto) 11.3 Eos % (Auto) 0.0 Baso % (Auto) 0.5 Neut # (Auto) 3.01 Lymph # (Auto) 0.72 L [place] # (Auto) 0.48 Eos # (Auto) 0.00 Baso # (Auto) 0.02 Immature Gran # (Auto) 0.03 H Absolute Nucleated RBC 0.04 H Nucleated RBC % (auto) 0.9 Platelet Estimate SIGNIFIC DECREASED Giant Platelets 3+ Polychromasia 1+ Hypochromasia Present Anisocytosis Present Tear Drop Cells 2+ Sodium 135 L Potassium 4.0 Chloride 101 Carbon Dioxide 29 Anion Gap 5.0 BUN 25 H Creatinine 0.58 L Est Cr Clr Drug Dosing 116.7 Est GFR ( Amer) > 150.0 Est GFR (Non-Af Amer) 130.8 BUN/Creatinine Ratio 42.8 H Glucose 122 H Calcium 9.2 Magnesium 2.6 H PG Care Time/CCT Total # of Minutes Spent Total Time Spent with Patient: Total time spent is greater than 50% in coordination of care (as documented) at patient's floor/unit and/or counseling patient: Coding Level of Care Code 75462 Subseq Hosp Care Lvl 3 Diagnoses Acute respiratory failure with hypoxia J96.01 Pneumonia due to COVID-19 virus U07.1; J12.82 Pulmonary edema J81.1 Acute ITP D69.3 Hypothyroid E03.9 Iron deficiency anemia D50.9 DVT prophylaxis Z29.9 Moderate protein-calorie malnutrition E44.0
[2021-03-15] MEDS: LEVOTHYROXINE SODIUM 75 MCG TABLET PO SCH (05:55)
[2021-03-15 06:54] LABS: Hemoglobin 12.2 g/dL (12.0-16.0); Mean Corpuscular Hemoglobin 23.3 pg (25-34); Mean Corpuscular Volume 78.4 fL (80-100); Red Blood Count 5.23 M/uL (4.2-5.4); White Blood Count 3.27 K/uL (4.8-10.8)
[2021-03-15 07:06] LABS: Mean Corpuscular Hgb Conc 29.8 g/dL (32-36); Platelet Count 22 K/uL (130-400)
[2021-03-15 07:19] LABS: BUN Creatinine Ratio 45.3 (10-20); Blood Urea Nitrogen 26 mg/dl (7-18); Calcium 8.9 mg/dl (8.5-10.1); Carbon Dioxide 29 mmol/L (21-32); Chloride 104 mmol/L (98-107); Creatinine Clr Calc Pharmacy 121.4 ml/min; Est GFR (African American) > 150.0 ml/min; Est GFR (Non-African American) 132.4 ml/min; Glucose 105 mg/dl (70-99); Potassium 4.3 mmol/L (3.5-5.1); Sodium 138 mmol/L (136-145)
[2021-03-15] MEDS: ALBUTEROL HFA 8 GM INHALER INH SCH ×4 (07:22→19:51)
[2021-03-15 07:29] LABS: Anisocytosis Present; Basophils # (auto) 0.05 K/uL (0-0.2); Basophils % (auto) 1.5 %; Giant Platelets 1+; Immature Granulocytes # (auto) 0.02 K/uL (0.00-0.02); Immature Granulocytes % (auto) 0.6 %; Lymphocytes # (auto) 1.15 K/uL (1.2-3.4); Lymphocytes % (auto) 35.2 %; Monocytes # (auto) 0.56 K/uL (0.11-0.59); Monocytes % (auto) 17.1 %; Neutrophils # (auto) 1.49 K/uL (1.4-6.5); Neutrophils % (auto) 45.6 %; Tear Drop Cells 1+
[2021-03-15] MEDS ORDERED: IMMUNE GLOBULIN (HUMAN) SOLN IV ONE (07:43)
[2021-03-15] MEDS ORDERED: ACETAMINOPHEN 500 MG TAB PO SCH (08:00)
[2021-03-15] MEDS ORDERED: diphenhydrAMINE Capsule 25 MG CAP PO SCH (08:00)
[2021-03-15] MEDS: guaiFENesin 600 MG TABCR PO SCH ×2 (08:22→20:01)
[2021-03-15] MEDS: predniSONE 50 MG TAB PO SCH (08:22)
[2021-03-15] MEDS: IMMUNE GLOBULIN(HUMAN) 10% 100 ML IV SCH ×5 (09:17→11:45)
--- NOTE | 2021-03-15 22:56 | Hospitalist Progress Note ---
Date of Service March 15, 2021 Assessment & Plan (1) Acute respiratory failure with hypoxia: Plan: 2nd to COVID-19 pneumonia, possible bacterial superinfection/pneumonia, and possible pulmonary edema (at time of admission) s/p lasix x 2 doses. IMPROVING. wean NC O2 as tolerated. Supportive care. See below. (2) Pneumonia due to COVID-19 virus: Plan: IMPROVING. She is about day #12 to 13 into her illness. She continues on prednisone for #4 below which will also serve to treat her COVID pneumonia. She is out of the window for remdesivir treatment. Again encouraged proning; nursing also encouraging. Encouraged flutter valve and incentive donato. Cont mucinex. Of note - CTA chest during prior admission showed RML consolidation and thus was treated for bacterial superinfection. She completed a full 7-day stretch of IV/PO antibiotic therapy to cover for such. Abx now stopped. (3) Pulmonary edema: Plan: Suspected. Resolved. Was present at time of admission. This was in setting of 4 units of PRBCs during prior admission. s/p lasix x 2 doses - did diurese, but no change clinically. Echo with low-normal EF of 50-55%. Her troponin is negative suggesting no myocarditis. However, her low-normal EF may be a function of simply being very ill. Will need f/u echo in 1-2 months to recheck EF. Further, will need to monitor carefully for development of pericarditis given her small pericardial effusion. NO symptoms to date to suggest such. (4) Acute ITP: Plan: Patient dx with ITP as a teenager. Did not have f/u for such in quite some time, however. Active ITP is due to activation from COVID-[address] Madrigal from oncology formally consulted during the prior admission. Advised prednisone with slow taper. Her platelets bottomed at [address] Madrigal consulted. s/p IVIG yesterday with some improvement to the low 20s. gave additional IVIG today. CBC am. appreciate Dr Madrigal's consultation. (5) Hypothyroid: Plan: New diagnosis made during prior admission. Severe. Just initiated on synthroid 75mcg daily. Repeat TSH in ~6 weeks. (6) Iron deficiency anemia: Plan: Severe. 2nd to menorrhagia. Ferritin <5. s/p venofer during prior admission. H/H remain stable. Repeat CBC in am. Recent b12/folate wnl. No evidence of active hemolysis at this time. Will give venofer 300mg IV x 1 in am tomorrow. (7) DVT prophylaxis: Plan: chemical means contraindicated due to severe thrombocytopenia from ITP. thus - SCDs. ambulate. at high risk of VTE due to COVID-19 illness. (8) Moderate protein-calorie malnutrition: Plan: lost weight earlier this summer. other process besides her hypothyroidism and ITP?? will need w/u for this. Plan: Spoke with pt's aunt who is listed as contact in the chart. Pt gave permission to call her earlier this week. Extensive update given to pt's aunt. will order PT consult due to significant weakness. Admission and Anticipated Discharge Date Admission Date: March 12, 2021 Subjective pt's nurse states she is not getting up that much or sitting in chair or performing pulmonary toilet despite the above the patient states she is feeling better breathing is better appetite still poor no spontaneous bleeding from any location tolerated IVIG again this am denies any new complaints Review of Systems Review of Systems: gen - fatigue, anorexia CV - no chest pain Pulm - cough, congestion - but no dyspnea GI - no abd pain; no nausea Physical Exam Physical Exam: Gen: sickly, thin, no acute distress - looks modestly better today ENT: MMM Neck: no JVD Heart: RRR, s1 s2, no murmur lungs: improved airation bases today; minimal basilar rales; no increased work of breathing Abd: soft, NT, splenomegaly present - no change, BS+, no hepatomegaly Ext: no edema skin: no rash, no petechiae, no ecchymoses psych: restricted affect Results & Data Results & Data ([facility]) Vital Signs (Past 12 Hours) Vital Signs Temp Pulse Resp BP Pulse Ox 03/15/21 19:55 36.5 C 80 20 109/76 93 03/15/21 19:51 44 L 16 93 03/15/21 15:34 36.4 C L 45 L 16 99/71 L 97 03/15/21 14:15 45 L 16 99 03/15/21 11:06 52 L 18 96 Laboratory Results Laboratory Results - last 24 hr 03/15/21 03/15/21 06:04 06:04 WBC 3.27 L RBC 5.23 Hgb 12.2 Hct 41.0 MCV 78.4 L MCH 23.3 L MCHC 29.8 L Plt Count 22 L* D Immature Gran % (Auto) 0.6 Neut % (Auto) 45.6 Lymph % (Auto) 35.2 [place] % (Auto) 17.1 Eos % (Auto) 0.0 Baso % (Auto) 1.5 Neut # (Auto) 1.49 Lymph # (Auto) 1.15 L [place] # (Auto) 0.56 Eos # (Auto) 0.00 Baso # (Auto) 0.05 Immature Gran # (Auto) 0.02 Giant Platelets 1+ Anisocytosis Present Tear Drop Cells 1+ Sodium 138 Potassium 4.3 Chloride 104 Carbon Dioxide 29 Anion Gap 5.0 BUN 26 H Creatinine 0.56 L Est Cr Clr Drug Dosing 121.4 Est GFR ( Amer) > 150.0 Est GFR (Non-Af Amer) 132.4 BUN/Creatinine Ratio 45.3 H Glucose 105 H Calcium 8.9 PG Care Time/CCT Total # of Minutes Spent Total Time Spent with Patient: Total time spent is greater than 50% in coordination of care (as documented) at patient's floor/unit and/or counseling patient: Coding Level of Care Code 47120 Subseq Hosp Care Lvl 3 Diagnoses Acute respiratory failure with hypoxia J96.01 Pneumonia due to COVID-19 virus U07.1; J12.82 Pulmonary edema J81.1 Acute ITP D69.3 Hypothyroid E03.9 Iron deficiency anemia D50.9 DVT prophylaxis Z29.9 Moderate protein-calorie malnutrition E44.0
[2021-03-16] MEDS: LEVOTHYROXINE SODIUM 75 MCG TABLET PO SCH (05:47)
[2021-03-16] MEDS: ALBUTEROL HFA 8 GM INHALER INH SCH (07:16)
[2021-03-16] MEDS ORDERED: IRON SUCROSE 300 MG in SODIUM CHLORIDE 0.9% 250 ML IV ONE (08:00)
[2021-03-16 08:07] LABS: BUN Creatinine Ratio 51.1 (10-20); Blood Urea Nitrogen 26 mg/dl (7-18); Calcium 8.7 mg/dl (8.5-10.1); Carbon Dioxide 27 mmol/L (21-32); Chloride 107 mmol/L (98-107); Est GFR (African American) > 150.0 ml/min; Est GFR (Non-African American) 136.5 ml/min; Glucose 105 mg/dl (70-99); Potassium 3.9 mmol/L (3.5-5.1); Sodium 137 mmol/L (136-145)
[2021-03-16 08:41] LABS: Anisocytosis Present; Basophils # (auto) 0.02 K/uL (0-0.2); Basophils % (auto) 0.5 %; Hematocrit (blood only) 40.8 % (37-47); Hemoglobin 11.9 g/dL (12.0-16.0); Immature Granulocytes # (auto) 0.01 K/uL (0.00-0.02); Immature Granulocytes % (auto) 0.3 %; Lymphocytes # (auto) 1.52 K/uL (1.2-3.4); Lymphocytes % (auto) 38.3 %; Mean Corpuscular Hemoglobin 23.4 pg (25-34); Mean Corpuscular Hgb Conc 29.2 g/dL (32-36); Mean Corpuscular Volume 80.3 fL (80-100); Monocytes # (auto) 0.51 K/uL (0.11-0.59); Monocytes % (auto) 12.8 %; Neutrophils # (auto) 1.91 K/uL (1.4-6.5); Neutrophils % (auto) 48.1 %; Platelet Count 46 K/uL (130-400); Platelet Estimate Decreased (Normal); Red Blood Count 5.08 M/uL (4.2-5.4); Tear Drop Cells 1+; White Blood Count 3.97 K/uL (4.8-10.8)
[2021-03-16] MEDS: guaiFENesin 600 MG TABCR PO SCH ×2 (08:49→19:09)
[2021-03-16] MEDS: predniSONE 50 MG TAB PO SCH (08:49)
[2021-03-16] MEDS ORDERED: ALBUTEROL HFA 8 GM INHALER INH PRN (09:00)
--- NOTE | 2021-03-16 21:27 | Hospitalist Progress Note ---
Date of Service March 16, 2021 Assessment & Plan (1) Acute respiratory failure with hypoxia: Plan: 2nd to COVID-19 pneumonia, possible bacterial superinfection/pneumonia, and possible pulmonary edema (at time of admission) s/p lasix x 2 doses. resolved. off NC O2 and stable in RA. See below. (2) Pneumonia due to COVID-19 virus: Plan: IMPROVING/resolving. She is about day #13 to 14 into her illness. She continues on prednisone for #4 below which will also serve to treat her COVID pneumonia. She was out of the window for remdesivir treatment - never received. Cont pulm toilet (flutter, incentive, etc). Of note - CTA chest during prior admission showed RML consolidation and thus was treated for bacterial superinfection. She completed a full 7-day stretch of IV/PO antibiotic therapy to cover for such. Abx now stopped. (3) Pulmonary edema: Plan: Suspected. Resolved. Was present at time of admission. This was in setting of 4 units of PRBCs during prior admission. s/p lasix x 2 doses - did diurese, but no change clinically. Echo with low-normal EF of 50-55%. Her troponin was negative suggesting no myocarditis. However, her low-normal EF may be a function of simply being very ill. Will need f/u echo in 1-2 months to recheck EF. Need to monitor carefully for development of pericarditis given her small pericardial effusion. Still no sx's of such. (4) Acute ITP: Plan: Patient dx with ITP as a teenager. Did not have f/u for such in quite some time, however. Active ITP is due to activation from COVID-[address] Madrigal from oncology formally consulted during the prior admission. Advised prednisone with slow taper. Her platelets bottomed at [address] Madrigal consulted. s/p IVIG x 2 runs this admission. Platelets now 40s today. CBC am . will need f/u in 1-2 weeks post-d/c with Dr Madrigal. (5) Hypothyroid: Plan: New diagnosis made during prior admission. Severe. Just initiated on synthroid 75mcg daily. Repeat TSH in ~6 weeks. (6) Iron deficiency anemia: Plan: Severe. 2nd to menorrhagia. 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 Ferritin <5. s/p venofer during prior admission. Will give venofer 300mg IV x 1 today and again tomorrow. (7) DVT prophylaxis: Plan: chemical means contraindicated due to severe thrombocytopenia from ITP. SCDs. ambulate. at high risk of VTE due to COVID-19 illness. (8) Moderate protein-calorie malnutrition: Plan: lost weight earlier this summer. other process besides her hypothyroidism and ITP?? will need w/u for this. (9) Pancytopenia: Plan: multifactorial - Fe def, ITP, COVID-19 infection, etc. improving albeit slowly Plan: Spoke with pt's aunt who is listed as contact in the chart yesterday pm. Pt gave permission to call her earlier this week. encouraged more ambulation today d/c home next 1-2 days ?? Admission and Anticipated Discharge Date Admission Date: March 12, 2021 Subjective patient feeling better today appetite still fair at best, however ambulating a little more but still spending much of the time in bed O2 sats normal in RA; O2 weaned off no pulmonary symptoms today except mild cough no GI symptoms asks questions about her prednisone (for ITP), etc had venofer today w/o reaction Review of Systems Review of Systems: gen - no fever/chills CV - no chest symptoms (pain, etc) pulm - denies dyspnea GI - no diarrhea; constipated (no BM several days) Physical Exam Physical Exam: Gen: thin, NAD; looks much better than prior exams ENT: MMM Neck: no JVD Heart: RRR, s1 s2, no murmur lungs: improving airation bases; scant rales right mid-lung posteriorly; no wheeze Abd: soft, NT, splenomegaly present - no change, BS+, no hepatomegaly Ext: no edema skin: no rash, no petechiae, no ecchymoses Results & Data Results & Data ([facility]) Vital Signs (Past 12 Hours) Vital Signs Temp Pulse Resp BP Pulse Ox 03/16/21 19:51 36.5 C 55 L 18 102/73 92 03/16/21 15:33 36.7 C 47 L 18 97/80 L 92 03/16/21 15:11 93 Laboratory Results Laboratory Results - last 24 hr 03/16/21 03/16/21 06:53 06:53 WBC 3.97 L RBC 5.08 Hgb 11.9 L Hct 40.8 MCV 80.3 MCH 23.4 L MCHC 29.2 L Plt Count 46 L D Immature Gran % (Auto) 0.3 Neut % (Auto) 48.1 Lymph % (Auto) 38.3 [place] % (Auto) 12.8 Eos % (Auto) 0.0 Baso % (Auto) 0.5 Neut # (Auto) 1.91 Lymph # (Auto) 1.52 [place] # (Auto) 0.51 Eos # (Auto) 0.00 Baso # (Auto) 0.02 Immature Gran # (Auto) 0.01 Platelet Estimate Decreased L Anisocytosis Present Tear Drop Cells 1+ Sodium 137 Potassium 3.9 Chloride 107 Carbon Dioxide 27 Anion Gap 4.0 BUN 26 H Creatinine 0.51 L Est Cr Clr Drug Dosing 148.0 Est GFR ( Amer) > 150.0 Est GFR (Non-Af Amer) 136.5 BUN/Creatinine Ratio 51.1 H Glucose 105 H Calcium 8.7 PG Care Time/CCT Total # of Minutes Spent Total Time Spent with Patient: Total time spent is greater than 50% in coordination of care (as documented) at patient's floor/unit and/or counseling patient: Coding Level of Care Code 74642 Subseq Hosp Care Lvl 3 Diagnoses Acute respiratory failure with hypoxia J96.01 Pneumonia due to COVID-19 virus U07.1; J12.82 Pulmonary edema J81.1 Acute ITP D69.3 Hypothyroid E03.9 Iron deficiency anemia D50.9 DVT prophylaxis Z29.9 Moderate protein-calorie malnutrition E44.0 Pancytopenia D61.818
[2021-03-17] MEDS: LEVOTHYROXINE SODIUM 75 MCG TABLET PO SCH (06:22)
[2021-03-17 06:45] LABS: Mean Corpuscular Hgb Conc 29.1 g/dL (32-36)
[2021-03-17 06:54] LABS: Hemoglobin 12.8 g/dL (12.0-16.0); Mean Corpuscular Hemoglobin 23.3 pg (25-34); Mean Corpuscular Volume 80.1 fL (80-100); Red Blood Count 5.49 M/uL (4.2-5.4); White Blood Count 3.98 K/uL (4.8-10.8)
[2021-03-17 07:14] LABS: Anisocytosis Present; Basophils # (auto) 0.01 K/uL (0-0.2); Basophils % (auto) 0.3 %; Eosinophils # (auto) 0.01 K/uL (0-0.5); Eosinophils % (auto) 0.3 %; Immature Granulocytes # (auto) 0.02 K/uL (0.00-0.02); Immature Granulocytes % (auto) 0.5 %; Lymphocytes # (auto) 1.21 K/uL (1.2-3.4); Lymphocytes % (auto) 30.4 %; Monocytes # (auto) 0.34 K/uL (0.11-0.59); Monocytes % (auto) 8.5 %; Neutrophils # (auto) 2.39 K/uL (1.4-6.5); Platelet Count 55 K/uL (130-400); Platelet Estimate Decreased (Normal); Poikilocytosis Present
[2021-03-17] MEDS ORDERED: IRON SUCROSE 300 MG in SODIUM CHLORIDE 0.9% 250 ML IV ONE (08:00)
[2021-03-17] MEDS ORDERED: predniSONE 20 MG TAB PO SCH (08:24)
[2021-03-17] MEDS ORDERED: SENNA 8.6 MG TAB PO SCH (09:00)
[2021-03-17] MEDS ORDERED: POLYETHYLENE (MIRALAX) 17 GM PACK PO SCH (09:00)
[2021-03-17] MEDS: guaiFENesin 600 MG TABCR PO SCH (09:34)
--- NOTE | 2021-03-17 13:48 | Hospitalist Progress Note ---
Date of Service March 17, 2021 Assessment & Plan (1) Acute respiratory failure with hypoxia: Plan: 2nd to COVID-19 pneumonia, possible bacterial superinfection/pneumonia, and possible pulmonary edema (at time of admission) s/p lasix x 2 doses. resolved. off NC O2 and stable in RA. See below. (2) Pneumonia due to COVID-19 virus: Plan: IMPROVING/resolving. She is about day #13 to 14 into her illness. She continues on prednisone for #4 below which will also serve to treat her COVID pneumonia. She was out of the window for remdesivir treatment - never received. Cont pulm toilet (flutter, incentive, etc). Of note - CTA chest during prior admission showed RML consolidation and thus was treated for bacterial superinfection. She completed a full 7-day stretch of IV/PO antibiotic therapy to cover for such. Abx now stopped. (3) Pulmonary edema: Plan: Suspected. Resolved. Was present at time of admission. This was in setting of 4 units of PRBCs during prior admission. s/p lasix x 2 doses - did diurese, but no change clinically. Echo with low-normal EF of 50-55%. Her troponin was negative suggesting no myocarditis. However, her low-normal EF may be a function of simply being very ill. Will need f/u echo in 1-2 months to recheck EF. Need to monitor carefully for development of pericarditis given her small pericardial effusion. Still no sx's of such. (4) Acute ITP: Plan: Patient dx with ITP as a teenager. Did not have f/u for such in quite some time, however. Active ITP is due to activation from COVID-[address] Madrigal from oncology formally consulted during the prior admission. Advised prednisone with slow taper. Her platelets bottomed at [address] Madrigal consulted. s/p IVIG x 2 runs this admission. Platelets now 40s today. CBC am . will need f/u in 1-2 weeks post-d/c with Dr Madrigal. (5) Hypothyroid: Plan: New diagnosis made during prior admission. Severe. Just initiated on synthroid 75mcg daily. Repeat TSH in ~6 weeks. (6) Iron deficiency anemia: Plan: Severe. 2nd to menorrhagia. 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 Ferritin <5. s/p venofer during prior admission. Will give venofer 300mg IV x 1 today and again tomorrow. (7) DVT prophylaxis: Plan: chemical means contraindicated due to severe thrombocytopenia from ITP. SCDs. ambulate. at high risk of VTE due to COVID-19 illness. (8) Moderate protein-calorie malnutrition: Plan: lost weight earlier this summer. other process besides her hypothyroidism and ITP?? will need w/u for this. (9) Pancytopenia: Plan: multifactorial - Fe def, ITP, COVID-19 infection, etc. improving albeit slowly Admission and Anticipated Discharge Date Admission Date: March 12, 2021 Physical Exam Physical Exam: Gen: thin, NAD; looks much better than prior exams ENT: MMM Neck: no JVD Heart: RRR, s1 s2, no murmur lungs: improving airation bases; scant rales right mid-lung posteriorly; no wheeze Abd: soft, NT, splenomegaly present - no change, BS+, no hepatomegaly Ext: no edema skin: no rash, no petechiae, no ecchymoses Results & Data Results & Data ([facility]) Vital Signs (Past 12 Hours) Vital Signs Temp Pulse Resp BP Pulse Ox 03/17/21 11:24 92 03/17/21 08:14 36.6 C 44 L 20 105/67 99 03/17/21 03:29 36.5 C 71 18 121/93 95 PG Care Time/CCT Total # of Minutes Spent Total Time Spent with Patient: Total time spent is greater than 50% in coordination of care (as documented) at patient's floor/unit and/or counseling patient: Coding Diagnoses Acute respiratory failure with hypoxia J96.01 Pneumonia due to COVID-19 virus U07.1; J12.82 Pulmonary edema J81.1 Acute ITP D69.3 Hypothyroid E03.9 Iron deficiency anemia D50.9 DVT prophylaxis Z29.9 Moderate protein-calorie malnutrition E44.0 Pancytopenia D61.818
--- NOTE | 2021-03-20 20:49 | Discharge Summary ---
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 Main reason she returned to the ER is she is struggling to lie down at night with chest heaviness and shortness of breath. Positive symptoms for paroxsmal nocturnal dyspnea. No palpitations, chest pain, leg swelling. Initial symptoms of COVID began on March 03 (currently day 10 of illness), tested positive on March 08. She was hospitalized here from March 08 - 2020 due to COVID-19 pneumonia, suspected bacterial pneumonia (procalcitonin negative, based on consolidation on CT), severe iron deficient anemia (Hgb 3.3) and thrombocytopenia. Blood cultures were negative. CT angiogram on 03/08 negative for pulmonary emboli. She was not hypoxic for COVID- 19. bacterial PNA treated with ceftriaxone and azithromycin during admission and switched to Levaquin on discharge. Anemia treated with 4 units packed RBCs with discharge hemoglobin 11.5. ITP treated with prednisone 50mg PO daily In the ER her hemoglobin (Hgb 13.1) and thrombocytopenia (Plt 48) have improved. However due to worsening symptoms and now requiring 2LPM O2 to maintain O2 sats she was referred to medicine for admission and ongoing management of COVID-19 pneumonia. Principal Diagnosis 1. Acute hypoxic respiratory failure 2nd to COVID-19 pneumonia 2. ITP 3. Pulmonary edema Discharge Exam Gen: thin, NAD HEENT: MMM, no thrush Neck: no JVD Heart: sinus bradycardia, s1 s2, no murmur Lungs: decreased BS bases, crackles mid right lung Abd: soft, NT, ND, no hepatomegaly, mild splenomegaly Ext: no edema, pulses 2+ b/l Psych: a/o x 3 Skin: no petechiae or rash Discharge Data Allergies Allergy/AdvReac Type Severity Reaction Status Date / Time No Known Allergies Allergy Verified 03/12/21 11:22 Consultations Hematology - Scooby Madrigal DO Physical Therapy Procedures Performed 1. IVIG x 2 infusions 2. IV venofer x 1 Ordered Studies Chest X-Ray 03/12/21 10:17 XR chest 1V portable CLINICAL HISTORY: weakness COMPARISON STUDY: Chest radiograph and chest CT March 08, 2021. FINDINGS: There is no pneumothorax. There are suspected small bilateral pleural effusions. Dense right middle lobe consolidation persists. Extensive bilateral lower lobe consolidation has developed. This may reflect a hypoventilatory study. Mild enlargement of the cardiac silhouette is noted. IMPRESSION: 1. Persistent right middle lobe consolidation and interval development of extensive bilateral lower lobe consolidation. The findings represent pneumonia which may be bacterial or viral in etiology. 2. Small bilateral pleural effusions. 3. Mild enlargement of the cardiac silhouette. ACT 112: Negative or not required by law. Electronically signed by: Brock Mukherjee M.D. 03/12/2021 10:38 AM Chest X-Ray 03/13/21 10:14 SINGLE VIEW CHEST CLINICAL HISTORY: Pneumonia and/or congestive heart failure. FINDINGS: An AP, portable, upright chest radiograph is compared to study dated 03/12/2021 and correlated with chest CT dated 03/08/2021. The cardiomediastinal silhouette is unremarkable. There are layering pleural effusions with bibasilar consolidation. No pneumothorax is seen. The bony thorax is grossly intact. IMPRESSION: Layering pleural effusions and bibasilar airspace consolidation is similar in appearance to yesterday. These findings favor pneumonia and radiographic follow-up to resolution is recommended. ACT 112: Negative or not required by law. Electronically signed by: Dequan Frye M.D. 03/13/2021 12:50 PM Echocardiogram: * EF 50-55%; borderline global hypokinesis * small posterior pericardial effusion without features of tamponade * IVC not dilated * normal valve function * RV function normal Hospital Course (1) Acute respiratory failure with hypoxia: 2nd to COVID-19 pneumonia, possible bacterial superinfection/pneumonia (RML), and probable pulmonary edema. Received steroids for her COVID-19 pneumonia and ITP, finished a course of oral antibiotics for CTA-confirmed RML consolidative pneumonia, and was diuresed with lasix. NC O2 was weaned off prior to discharge. O2 sats were normal in room air with walking and at rest at time of discharge. (2) Pneumonia due to COVID-19 virus: Improved during her stay. She was 14+ days into her illness by time of discharge. She was continued on prednisone for #4 below which also served to treat her COVID-19 pneumonia. She was out of the window for Remdesivir treatment thus she never received such. Of note - CTA chest during prior admission showed RML consolidation and thus she was treated for bacterial superinfection during the prior hospitalization and this hospital stay. She completed a full 7-day stretch of IV/PO antibiotic therapy for bacterial superinfection. With the above, aggressive pulmonary toilet, and time her O2 was weaned off by time of discharge. Recommend repeat chest x-ray in 4-6 weeks as outpatient. (3) Pulmonary edema: Suspected. Present at time of admission. This was in the setting of 4 units of PRBCs administered during the prior admission. s/p lasix with adequate diuresis while here. She was euvolemic at discharge. Echocardiogram was obtained - this demonstrated low-normal EF of 50-55%. Her troponin was negative suggesting no myocarditis. However, her low-normal EF may have been a function of simply being very ill from COVID. Will need f/u echo in 1-2 months to recheck EF. This can be obtained via [facility]. She will need a referral from [facility] for the echo. Need to monitor carefully for development of pericarditis given her small pericardial effusion. Fortunately did not have symptoms of pericarditis during the hospitalization and EKG did not suggest either. (4) Acute ITP: Patient was diagnosed with ITP as a teenager. Has not had hematological follow-up for such in quite some time, however. Active ITP was due to activation from COVID-[address] Scooby Madrigal from oncology was formally consulted during the prior admission. During the previous admission he advised prednisone with slow taper. Lowest platelets this admission were 5 on 03/14/21. She received IVIG x 2 for the severe thrombocytopenia. Platelets improved to 55 on day of discharge. At discharge the following were advised: * CBC with diff q3days starting 03/20/21 with results CC: to Dr Madrigal * Prednisone 40mg daily until seen by Dr Madrigal * Follow-up with Dr Madrigal within 10 days of discharge * Protonix 40mg daily for GI prophylaxis while on high-dose steroids (5) Hypothyroid: New diagnosis made during prior admission. Severe. TSH 68 on 03/12/21. Was recently initiated on synthroid 75mcg daily. Repeat TSH in ~6 weeks as outpatient. (6) Iron deficiency anemia: Severe. 2nd to menorrhagia. Needs gynecology f/u for this. Ferritin <5. s/p venofer x 1 during prior hospital admission. Then received venofer 300mg IV x 2 doses during this stay. Discharge hemoglobin was 12.8. (7) Moderate protein-calorie malnutrition: Patient lost weight earlier this summer, between 5 and 10 pounds. Uncertain of exact cause. She will need follow-up with her PCP for this issue. (8) Pancytopenia: Multifactorial - iron deficiency, ITP, COVID-19 infection, etc. WBC count 3.9 at discharge. Hb 12.8 at discharge. Platelets 55 at discharge. She has follow-up with Dr Madrigal as noted above. Total Time Total Time Spent Total Time Spent (In Minutes): 60 Discharge Plan Discharge Items Patient Disposition: Home - Self-Care Reason For Visit: COVID-19 PNEUMONIA Discharge Diagnosis: 1. COVID-19 pneumonia 2. Concern for bacterial "superinfection" (bacterial pneumonia in the setting of having COVID-19) 3. ITP with need for steroids and IVIG treatments 4. Severe iron deficiency 5. Recently diagnosed hypothyroidism Activity: As commented below Activity Comment: gradually increase your activities over the next 1-2 weeks Sexual Activity: Wait until after follow-up appointment Exercise/Sports: Wait until after follow-up appointment Driving/Machine Use: Resume 3 days after discharge Non-emergency contact: Primary Care Provider and Specialist Call non-emergency contact if: you have any medication questions, your symptoms worsen and your temperature is above 101 Follow-up/Referrals: Scooby Madrigal V., [Physician] - 03/28/21 3:10 pm (You have an appointment scheduled to see Dr. Madrigal, hematology, on 03/28/21 at 3:10pm. ) [facility] [Primary Care Provider] - (please call to make a follow up appointment - ideally this coming Saturday or ) Diet: Regular Ambulatory Orders: Complete Blood Count with Diff (Routine) Timeframe: 20210323 Location: Determined by Patient Ordered By: Evan Dejesus Complete Blood Count with Diff (Routine) Timeframe: 20210320 Location: Determined by Patient Ordered By: Evan Dejesus Complete Blood Count with Diff (Routine) Timeframe: 20210327 Location: Determined by Patient Ordered By: Evan Dejesus Addtl Attending Provider Instructions: Ms. Bess, You were admitted to the hospital for COVID-19 pneumonia as well as very low platelets from your ITP. You required oxygen therapy for several days. This was fully weaned off on 03/16/21. Steroids and other measures were taken to treat your COVID-19 pneumonia. You finished a course of antibiotics in the event you had bacteria in your lungs. You also received 2 infusions of IVIG for your ITP and 2 infusions of iron for your severe iron deficiency. Your platelet count improved from a low of 5 to 55 at time of discharge. Recommendations - 1. You are about 15-16 days into your illness and you are unlikely to be contagious to others at this time. You technically do not need to isolate upon return home. However, I would recommend that you spend this weekend at your home taking it easy and focusing on your recovery. Starting Saturday or so you can re-enter the community as needed. Continue to wear your mask outside your home. 2. Please obtain a repeat chest x-ray in about 6 weeks to ensure all of the pneumonia is gone from your x-ray. 3. Please avoid motrin, ibuprofen, alleve, naprosyn, and aspirin. Ok to take tylenol for aches, pains, or fever. 4. See [facility] this coming week - preferably on Saturday or . You will need to call them today to schedule this follow-up appointment. 5. may use [id number] mucinex up to twice daily as desired for cough/congestion. 6. Please have a blood draw at [facility] on - * Saturday, 03/20 * , 03/23 * Saturday, 03/27 Results will be forwarded to Rivas Madrigal DO, at the [facility]. I have printed 3 lab slips for these dates for you. 7. Continue to check your oxygen levels on your finger a couple of times a day over the next week with your "pulse oximeter." If you are consistently less than 90% please seek medical attention right away. 8. Use your incentive spirometry and flutter valve frequently over the next week. 9. Continue to prone ("tummy time") as much as possible over the next few days. 10. Strongly consider getting a flu shot this fall. 11. Please speak to Dr Madrigal about getting the COVID vaccine in about 3 months following your recovery to protect against future infection from COVID. 12. Take pantoprazole 40mg once daily to prevent stomach irritation from the prednisone. Sent prescription to your pharmacy for you. 13. Start PREDNISONE 40mg once daily with food on 03/18/21. Stay on the 40mg dose daily until you see Dr Madrigal. 14. You have completed all antibiotics at this time. If you have antibiotics at home you can throw them away. 15. Finally, you will need a follow-up echocardiogram (heart ultrasound) in 2 months to recheck your heart function. [facility] can arrange this for you. Your heart function level was 50-55% (at lower limits of normal but still normal). Follow-up - see separate section Return to [facility] if - * you have recurrent fevers over 101 degrees * you have worsening shortness of breath * you develop significant diarrhea * you notice bruising on your skin, little red dots, etc (which would suggest your platelets are very low) * you have chest pains * any other concerns It was our pleasure caring for you at [facility]! Continue to feel better, -Dr Dejesus Pending Studies at Discharge: No Stand-Alone Forms: My [facility], Work/School Release, Smoking Cessation Medications and DC Order Prescriptions: New pantoprazole 40 mg tablet,delayed release (DR/EC) 40 mg PO QAM Qty: 30 RF: 2 Continued levothyroxine [Synthroid] 75 mcg Tablet 75 mcg PO DAILYBB Qty: 30 RF: 1 prednisone 20 mg tablet 40 mg PO DAILY Qty: 14 RF: 0 Discontinued prednisone 50 mg Tablet 50 mg PO DAILY Qty: 7 RF: 0 levofloxacin 750 mg tablet 750 mg PO QAM RF: 0 Discharge Orders: Discharge Order (Routine); Ordered 03/17/21 Ordered By: Evan Tim/Other Patient Handouts: 2019-nCoV, COVID-19 Prevention, COVID-19 Home Care, Proning COVID-19 Admission Data Admit Date/Time: 03/12/21 12:00 Attending Provider: Evan Dejesus Admit Provider: Evan Lew Primary Care Provider: [facility] Other Providers: Evan Lew ; cSooby Madrigal V. Other Interventions: Discharge Summary Assessment (RN) Last Done: 03/17/21 14:09 Coding Level of Care Code D/C DAY MANAGEMENT >30 MINS Diagnoses Acute respiratory failure with hypoxia J96.01 Pneumonia due to COVID-19 virus U07.1; J12.82 Pulmonary edema J81.1 Acute ITP D69.3 Hypothyroid E03.9 Iron deficiency anemia D50.9 Moderate protein-calorie malnutrition E44.0 Pancytopenia D61.818
== END 2021-03-17 15:19 | disposition home or self-care (01) | DRG 177 ==
LOC: ED 10:04 → SUATTDRO 12:00 → 2E 12:00